=== PATIENT | female | born 2000 | race Two or more races ===

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

== ENCOUNTER 2023-02-09 09:39 | Inpatient (IN) ==
[2023-02-09] MEDS ORDERED: SODIUM CHLORIDE 1,000 ML IV STA ×3 (09:51→11:46)
[2023-02-09 10:02] LABS: VBG PCO2 18 (40-50); VBG PH < 6.80 (7.30-7.40); VBG PO2 45 (36-42)
--- NOTE | 2023-02-09 10:02 | ED.PDOC ---
General ED Provider: Dr. AMAURI LEMONS DO Chief Complaint: Shortness of Air Stated Complaint: Patient is a 22 yo F here for SOB and not taking her insulin and feeling thirsty Patietn arrives afebrile tachycardic 108 and low BP 81/46 Patient arrives with friend by POV Unfortuantely she is known to use fentanyl and emth SHe deneis falls or injuires SHe denies feeling sick SHe reports she just did not want to take her insulin now she is nausea, vomiting and sob Patietn reports she started insulin recently but could not say when Paitetn amnealbe to fluids, labs and imaign Paitetn alert and oriented x4 GCS 15 Time Seen by Provider: 02/09/23 09:49 Nursing and Triage Documentation Reviewed and Agree: Yes Does patient meet sepsis criteria?: No System Inflammatory Response Syndrome: Not Applicable Sepsis Protocol: For patient's 13 years and over: Temp is 96.8 and below OR 101 and greater Pulse >90 BPM Resp >20/minute Acutely Altered Mental Status Are patient's symptoms suggestive of a new infection, such as: -Pneumonia -Skin, Soft Tissue -Endocarditis -UTI -Bone, Joint Infection -Implantable Device -Acute Abdominal Infection -Wound Infection -Meningitis -Blood Stream Catheter Infection -Unknown Review of Systems Review Of Systems Constitutional: Reports Malaise and Weakness; Denies Chills or Fever Eyes: Denies Blindness, Vision change, Drainage or Decreased acuity Ears, Nose, Mouth, Throat: Denies Ear pain, Ear discharge or Nose pain Respiratory: Denies Cough, Orthopnea or Shortness of Breath Cardiac: Denies Chest pain, Edema, Irregular heart rate or Palpitations GI: Reports Nausea and Vomiting; Denies Abdominal pain, Constipated or Diarrhea : Denies Burning, Dysuria, Discharge or Flank pain Musculoskeletal: Denies Back pain, Joint pain or Joint swelling Skin: Denies Bruising or Change in hair/nails Neurological: Reports Anxiety; Denies Depressed Endocrine: Reports Flushing and Increased thirst Hematologic/Lymphatic: Reports No symptoms All Other Systems: Reviewed and Negative [facility] Medical History Anxiety Bipolar disorder Depression Hyperthyroidism Hyperthyroidism Hypokalemia Hypokalemia Palpitations Family History FATHER Chronic mental illness Diabetes Anemia Cardiac disease Hyperlipidemia Cerebrovascular accident Mother Diabetes Other Afib DJD (degenerative joint disease) Social History Smoking and tobacco status: Current some day smoker Alcohol intake: never Substance use type: former substance user and methamphetamine Counseling given: No Household members: friend(s) Highest education level completed: 10th grade Current occupational status: unemployed History of recent travel: No Current gender identity: female Seatbelt use: always Female Reproductive History Menstrual Hx Hysterectomy: No Hx Tubal Ligation: No Physical Exam Physical Exam Appearance: Reports Ill-appearing, Well-nourished and Thin Ill-appearing: Moderate Pain Distress: Mild Eyes: Reports KENNETH, EOMI and Conjunctiva clear ENT: Reports Ears normal, Nose normal, Dry mucosa and Other (poor dentition uvula midline) Neck: Supple (trachea midline) Respiratory: Reports Airway patent, Breath sounds clear and Other (tachypnea, there is not kussmaul breathing) Cardiovascular: Reports Tachycardia GI/: Reports Soft and Other (no peritonitis, there is guarding, no fluid wave) Musculoskeletal: Reports Normal strength and ROM intact; Denies No edema Skin: Reports Warm and Dry Neurological: Reports Sensation intact and Motor intact Psychiatric: Reports Anxious; Denies Depressed Interpretation EKG Interpretation EKG Interpretation By: ED Physician Time of EKG #1: 10:10 Rate: Tachy Rhythm: Sinus Ectopy: None [place]: [place] ST Segment: Normal Interpretation: SInus tachycardia rate 106 no stemi no qt prolongation Radiology Interpretation Radiology Interpretation By: ED Physician Radiology Results: Negative Exam Interpreted: CXR Xray Comments: No pneumothroax no consolidaiotn CVC r IJ in place Procedures Central Line Follow Proper Hand Washing Protocol: Yes Indication: Present Hypotension, Volume resuscitation and No peripheral access Central Line Lumen: Triple Central Line Procedure: Yes Betadine Prep, Sterile drapes applied and Sterile dressing applied Central Line Postion: Internal jugular (R) Anesthesia: Local Complications: None Central Line Post Position: Sutured, Good blood return, Position confirmed w/ CXR and Equal breath sounds Progress: R IJ under US guidance 2 attempt no complications Critical Care Note Critical Care Note Total Critical Care Time (mins): 65 Comments: DKA, shock required reviewing old charts, monitoring and resuscitating cardiovascular system and endocrine system, I directed all care. I reviewed response to treatment, multiple labs and image. Course Course 02/09/23 10:08 02/09/23 10:08 Orders, Labs, Meds: Lab Review 02/09/23 02/09/23 02/09/23 09:59 10:08 11:10 WBC 32.22 H RBC 5.72 H Hgb 16.3 H Hct 50.9 H MCV 89.0 MCH 28.5 MCHC 32.0 RDW Coeff of Yoly 12.5 Plt Count 360 Neutrophils % (Manual) 87.0 H Lymphocytes % (Manual) 11.0 Monocytes % (Manual) 2.0 Platelet Estimate 360 Anisocytosis Not present VBG pH < 6.80 L < 6.80 L VBG pCO2 18 L 20 L VBG pO2 45 H 45 H VBG HCO3 Pending Pending VBG O2 Saturation Pending Pending Sodium 126.2 L Potassium 4.36 Chloride 95.5 L Carbon Dioxide < 5.0 L* Anion Gap 30.13469 BUN 34.8 H Creatinine 1.74 H Estimated GFR (MDRD) 37.00 BUN/Creatinine Ratio 20.00 Glucose 512.7 H* Lactic Acid 1.34 Calcium 8.51 Magnesium 2.66 H Total Bilirubin 0.37 AST 25.3 ALT 20.0 Alkaline Phosphatase 213.7 H Troponin I < 0.012 Total Protein 7.02 Albumin 3.97 Globulin 3.05 Albumin/Globulin Ratio 1.30 TSH < 0.015 L Free T4 3.12 H D-Dimer 1429.22 H Acetone, Qual Large Orders Category Date Time Status ADMIT PATIENT INPATIENT .TO SCU (MONITORED BED) ADMISSION 02/09/23 12:00 Ordered EKG-(ED ONLY) Stat CARDIO 02/09/23 09:44 Ordered VBG DRAW REQUEST Stat CARDIO 02/09/23 11:09 Ordered VBG DRAW REQUEST Stat CARDIO 02/09/23 11:09 Ordered BLOOD GLUCOSE MONITORING (MED/SURG) Q1HR CARE 02/09/23 10:09 Active INTAKE & OUTPUT Q8HR CARE 02/09/23 12:00 Ordered IP: INSERT SALINE LOCK ONCE CARE 02/09/23 12:00 Ordered TELEMETRY MONITORING TELE CARE 02/09/23 12:00 Ordered VITAL SIGNS Q8HR CARE 02/09/23 12:00 Ordered ACETONE, QUALITATIVE Stat LAB 02/09/23 10:08 Completed BLOOD CULTURE Stat LAB 02/09/23 11:55 Received BMP [BASIC METABOLIC PANEL] Stat LAB 02/09/23 11:55 Received CBC W/ AUTO DIFF Stat LAB 02/09/23 10:08 Completed COMPREHENSIVE METABOLIC PANEL Stat LAB 02/09/23 10:08 Completed D-DIMER Stat LAB 02/09/23 10:08 Completed FREE T4 (FREE THYROXINE) Stat LAB 02/09/23 10:08 Completed LACTIC ACID Stat LAB 02/09/23 10:08 Completed MAGNESIUM Stat LAB 02/09/23 10:08 Completed MANUAL DIFFERENTIAL Stat LAB 02/09/23 10:08 Completed TEST URINE [URINE ] Stat LAB 02/09/23 09:44 Uncollected THYROID STIMULATING HORMONE Stat LAB 02/09/23 10:08 Completed TROPONIN I Stat LAB 02/09/23 10:08 Completed UA [URINALYSIS C & S IF INDICATED] Stat LAB 02/09/23 09:52 Uncollected URINE DRUG SCREEN (RAPID FOR ED) [DRUG SCREEN, URINE, LAB 02/09/23 09:52 Uncollected RAPID] Stat VBG [VENOUS BLOOD GAS] Stat LAB 02/09/23 09:59 Results VBG [VENOUS BLOOD GAS] Stat LAB 02/09/23 11:10 Results Insulin Regular in 0.9 % NaCl [Myxredlin 100 Unit/100 Meds 02/09/23 10:30 Active ml Bag] 100 unit in 100 ml IV TITRATION Insulin Regular, Human [Humulin R] Meds 02/09/23 10:08 Discontinued 10 unit IVP ONCE STA Piperacillin Sodium/Tazobactam [Zosyn 3.375 gm] 3.375 Meds 02/09/23 11:22 Active gm 0.9 % Sodium Chloride [Sodium Chloride 100Ml] 100 ml IV ONCE Ringers Lactated Solution [Lactated Ringers] 1,000 ml Meds 02/09/23 11:00 Active Sodium Bicarb 8.4% Vial [Sodium Bicarbonate 8.4%] 100 meq IV 250 mls/hr Sodium Chloride 0.9% [Sodium Chloride] 1,000 ml Meds 02/09/23 09:51 Discontinued IV BOLUS Sodium Chloride 0.9% [Sodium Chloride] 1,000 ml Meds 02/09/23 09:57 Discontinued IV BOLUS Sodium Chloride 0.9% [Sodium Chloride] 1,000 ml Meds 02/09/23 11:46 Active IV BOLUS Vancomycin/Water For Inj (Peg) [Vancomycin 1 Gram/200 Meds 02/09/23 11:22 Active ml Premix] 1 gm in 200 ml IV ONCE RESUSCITATION STATUS Routine OTHERS 02/09/23 12:00 Ordered CXR [CHEST, 1V AP ONLY] Stat RADS 02/09/23 11:00 Completed Medications Generic Name Dose Route Start Last Admin Trade Name Brown PRN Reason Stop Dose Admin INSULIN REGULAR IN 0.9 % NACL 100 unit in 100 mls @ 4.36 mls/hr 02/09/23 10:30 02/09/23 10:20 Myxredlin 100 Unit/100 Ml Bag IV 0.1 unit/kg/hr TITRATION MARLY 4.4 mls/hr Administration Protocol 0.1 UNIT/KG/HR Sodium Bicarbonate 100 meq/ 1,100 mls @ 250 mls/hr 02/09/23 11:00 02/09/23 11:21 Lactated Ringer's IV 250 mls/hr .Q4H24M MARLY Administration VANCOMYCIN/WATER FOR INJ (PEG) 1 gm in 200 mls @ 200 mls/hr 02/09/23 11:22 Vancomycin 1 Gram/200 Ml Premix IV 02/09/23 12:21 ONCE ONE Piperacillin Sod/Tazobactam 100 mls @ 100 mls/hr 02/09/23 11:22 Sod 3.375 gm/ Sodium Chloride IV 02/09/23 12:21 ONCE ONE Sodium Chloride 1,000 mls @ 1,000 mls/hr 02/09/23 11:46 Sodium Chloride IV 02/09/23 12:45 BOLUS STA Discontinued Medications Generic Name Dose Route Start Last Admin Trade Name Brown PRN Reason Stop Dose Admin Sodium Chloride 1,000 mls @ 1,000 mls/hr 02/09/23 09:51 02/09/23 10:11 Sodium Chloride IV 02/09/23 10:50 1,000 mls/hr BOLUS STA Administration Sodium Chloride 1,000 mls @ 1,000 mls/hr 02/09/23 09:57 02/09/23 11:21 Sodium Chloride IV 02/09/23 10:56 1,000 mls/hr BOLUS STA Administration Insulin Human Regular 10 unit 02/09/23 10:08 02/09/23 10:17 Insulin Regular, Human 100 Unit/Ml (3ml) Vial IVP 02/09/23 10:09 10 unit ONCE STA Administration Vital Signs: Temp Pulse Resp BP Pulse Ox 02/09/23 10:20 107 H 25 H 81/46 L 02/09/23 09:44 97.1 F L 107 H 21 H 81/46 L 100 will resuscitate fluids and when K+ level is known give insulin suspect HHX/DKA and will likely admit for insulin drip I spoke with Dr. Roseanna Willard and Leigh Pharmacist plan will be fluids, insulin bolus and drip and na bicarb LR drip at 25 cc's an hour for 1 L and 2 amps bicarb MDM: Patient is a 22 yo F here for SOB, tachycardia and low blood pressure Patient arrives with unstable vitals as listed above She is alert and oriented x4 GCS 15 Patient reports she decided not to take her insulin for many days She unfortunately uses methamphetamine tobacco and alcohol Exam concerning for DKA with tachycardia and tachypnea, she is not obtunded Patient amenable to labs or imaging and treatment Emergent R IJ CVC for difficult peripheral access Patient improved with therapies Consults to Hospitalist Team Dr. Willard and JOELLE Jacobs WDX: DKA, JACE, hypotension, leukocytosis, polysubstance abuse, SOB acute condition high complexity DDX: I considered overdose, withdrawal pneumothorax but these are less likely Patient declined test initially D dimer elevated I initially ordered Chest pain work up and d dimer for tachycardia, unfortunately I deleted lab once I decided wdx was DKA, but lab ran the test anyway. Low risk wells PE score I discussed this with Hospitalist team will hold CT imaging now in setting of DKA/JACE SDOH: Patient is uninsured without PCP or family support She will improve with therapies We plan for admission, fluids resuscitation, insulin and bicarb drip Patient amenable to plan Discharge Plan Discharge Patient Disposition: ADMITTED INPATIENT Discharge Problem: JACE (acute kidney injury), Alkaline phosphatase elevation, DKA (diabetic ketoacidosis), Leukocytosis, Tobacco use, Polysubstance abuse Did you review [place] MEDICAL PARASITOLOGIST for ALL controlled substances?: Not Applicable ED Provider: AMAURI LEMONS Condition: Critical Physician Progress Note: []
[2023-02-09] MEDS ORDERED: HUMULIN R IVP STA (10:08)
[2023-02-09 10:15] LABS: HEMATOCRIT 50.9 % (37.0-47.0); HEMOGLOBIN 16.3 g/dl (12.0-16.0); MEAN CORPUSCULAR HEMOGLOBIN 28.5 pg (27.0-31.0); PLATELET COUNT 360 10^3/uL (140-440); RDW COEFFICIENT OF VARIATION 12.5 % (11.6-14.8); RED BLOOD COUNT 5.72 10^6/ul (4.20-5.40); WHITE BLOOD COUNT 32.22 K/ul (4.6-10.2)
[2023-02-09] MEDS ORDERED: MYXREDLIN 100 UNIT/100 ML BAG 100 UNIT/100 ML PLAST..BAG IV SCH (10:30)
[2023-02-09 11:01] LABS: ANISOCYTOSIS NOT PRESENT (NOT PRESENT)
[2023-02-09 11:02] LABS: PLATELET ESTIMATE 360
[2023-02-09 11:13] LABS: VBG PCO2 20 (40-50); VBG PH < 6.80 (7.30-7.40); VBG PO2 45 (36-42)
[2023-02-09] MEDS: SODIUM BICARBONATE 8.4% 100 MEQ in LACTATED RINGERS 1,000 ML IV SCH ×2 (11:21→16:20)
[2023-02-09] MEDS ORDERED: ZOSYN 3.375 GM 3.375 GM in SODIUM CHLORIDE 100ML 100 ML IV ONE (11:22)
[2023-02-09] MEDS ORDERED: VANCOMYCIN 1 GRAM/200 ML PREMIX 1 GM/200 ML BAG IV ONE (11:22)
--- NOTE | 2023-02-09 11:22 | DI ---
EXAM: SINGLE VIEW CHEST XRAY. Date: 02/09/2023 Comparison: 01/19/2022 History: Central line placement. Findings: A central line has been placed via right jugular approach and the tip is at the atriocaval junction. No acute osseous abnormalities are seen. The lungs are clear and there is no pleural separ ation.. The cardiac silhouette is within normal limits. The pulmonary vasculature is within normal l imits. Impresson: No acute intrathoracic findings.Placement of a right jugular line whose tip is at the atri ocaval junction. No pleural separation.
[2023-02-09 11:26] LABS: ALBUMIN 3.97 g/dL (3.5-5.0); ALKALINE PHOSPHATASE 213.7 U/L (38-126); ASPARTATE AMINO TRANSFERASE 25.3 U/L (14-36); BILIRUBIN,TOTAL 0.37 mg/dL (0.2-1.3); BLOOD UREA NITROGEN 34.8 mg/dL (7-17); CALCIUM 8.51 mg/dL (8.4-10.2); CHLORIDE 95.5 mmol/L (98-107); CREATININE 1.74 mg/dL (0.60-1.30); MAGNESIUM 2.66 mg/dL (1.6-2.3); POTASSIUM 4.36 mmol/L (3.5-5.1); SODIUM 126.2 mmol/L (134.5-145); TOTAL PROTEIN 7.02 g/dL (6.3-8.2)
[2023-02-09 11:41] LABS: CARBON DIOXIDE < 5.0 mmol/L (22-30.0)
[2023-02-09 11:42] LABS: GLUCOSE 512.7 mg/dL (74-106); THYROID STIMULATING HORMONE < 0.015 uIU/L (0.465-4.68); TROPONIN I < 0.012 ng/ml (0.0000-0.120)
--- NOTE | 2023-02-09 12:10 | PCM ---
Date of Service Date Seen by Provider: 02/09/23 Time Seen by Provider: 11:50 Admit Day/Time Admission Date: 02/09/23 Admission Time: 12:00 Reason for Admission Chief Complaint: DKA Hospital Provider Hospital Provider[facility] History of Present Illness History of Present Illness: Patient is a 22-year-old female with past medical history of DM type I who presents with shortness of breath, nausea and vomiting. She was found to be in severe DKA with ph <6.8, bicarb <5, and glucose >500. She was started on fluids, given insulin bolus and started on insulin drip. Required a central line. Her mentation improved after 2 fluid boluses. Still somewhat confused. No active vomiting. She states she's been staying somewhere with air conditioning. She states last insulin use was yesterday. She's unsure of last drug use. She denies hx of dka, however, it is listed in pmhx. About a year ago she was in [place] for glucose >1500 per records. Unreliable historian with this acute condition, pmhx gathered from previous records. Case Discussed With Case Discussed With: Patient's case was discussed with the ER Physicians, Dr. Yu. [facility] Medical History Anxiety F41.9 - Anxiety disorder, unspecified (ICD-10) Bipolar disorder F31.9 - Bipolar disorder, unspecified (ICD-10) Depression F32.9 - Major depressive disorder, single episode, unspecified (ICD-10) Hyperthyroidism E05.90 - Thyrotoxicosis, unspecified without thyrotoxic crisis or storm (ICD-10) Hypokalemia E87.6 - Hypokalemia (ICD-10) Palpitations R00.2 - Palpitations (ICD-10) Family History FATHER Chronic mental illness Diabetes Anemia Cardiac disease Hyperlipidemia Cerebrovascular accident Mother Diabetes Other Afib DJD (degenerative joint disease) Social History Smoking and tobacco status: Current some day smoker Alcohol intake: never Substance use type: former substance user and methamphetamine Counseling given: No Household members: friend(s) Highest education level completed: 10th grade Current occupational status: unemployed History of recent travel: No Current gender identity: female Seatbelt use: always Allergies Allergies Allergy/AdvReac Type Severity Reaction Status Date / Time latex AdvReac Rash Verified 02/09/23 12:09 Current Medications Home Medications Levemir FlexTouch U100 Insulin 100 unit/mL (3 mL) subcutaneous pen (insulin detemir U-100) 10 unit (0.1 mL) subcut QHS #15 mL 11/05/21 [Rx Confirmed 11/05/21 Last Taken Unknown] ibuprofen 800 mg tablet 800 mg PO Q8H PRN 11/05/21 [History Confirmed 11/05/21 Last Taken Unknown] insulin lispro 100 unit/mL subcutaneous solution (Humalog U-100 Insulin) 1 sliding scale dose subcut USEASDIRECTD #10 mL 11/05/21 [Rx Confirmed 11/05/21 Last Taken Unknown] insulin syringes (disposable) 1 mL #500 ea 11/05/21 [Rx Confirmed 11/05/21 Last Taken Unknown] pen needle, diabetic 31 gauge x 3/16" (Advocate Pen Needle) #100 ea 11/05/21 [Rx Confirmed 11/05/21 Last Taken Unknown] blood sugar diagnostic (OneTouch Ultra Test strips) #100 ea 11/08/21 [Rx Last Taken Unknown] potassium chloride 20 mEq tablet,extended release 20 meq PO DAILY #20 tabs 01/19/22 [Rx Last Taken Unknown] ondansetron 4 mg disintegrating tablet 4 mg PO Q8H PRN nausea and vomiting #10 tabs 01/31/22 [Rx Last Taken Unknown] Home Enoxaparin Sodium (Enoxaparin Sodium 40 Mg/0.4 Ml Syr) 40 mg SUBCUT DAILY [facility] Sodium Bicarbonate 100 meq/ (Lactated Ringer's) 1,100 mls @ 250 mls/hr IV .Q4H24M [facility] Last Admin: 02/09/23 11:21 Dose: 250 mls/hr Ondansetron HCl (Ondansetron Hcl/Pf 4 Mg/2 Ml Sdv) 4 mg IVP Q6H PRN PRN Reason: Nausea / Vomiting Discontinued Medications Sodium Chloride (Sodium Chloride) 1,000 mls @ 1,000 mls/hr IV BOLUS STA Stop: 02/09/23 10:50 Last Admin: 02/09/23 10:11 Dose: 1,000 mls/hr Sodium Chloride (Sodium Chloride) 1,000 mls @ 1,000 mls/hr IV BOLUS STA Stop: 02/09/23 10:56 Last Admin: 02/09/23 11:21 Dose: 1,000 mls/hr INSULIN REGULAR IN 0.9 % NACL (Myxredlin 100 Unit/100 Ml Bag) 100 unit in 100 mls @ 4.36 mls/hr IV TITRATION MARLY; Protocol Last Admin: 02/09/23 10:20 Dose: 0.1 unit/kg/hr, 4.4 mls/hr VANCOMYCIN/WATER FOR INJ (PEG) (Vancomycin 1 Gram/200 Ml Premix) 1 gm in 200 mls @ 200 mls/hr IV ONCE ONE Stop: 02/09/23 12:21 Last Admin: 02/09/23 13:32 Dose: 200 mls/hr Piperacillin Sod/Tazobactam (Sod 3.375 gm/ Sodium Chloride) 100 mls @ 100 mls/hr IV ONCE ONE Stop: 02/09/23 12:21 Sodium Chloride (Sodium Chloride) 1,000 mls @ 1,000 mls/hr IV BOLUS STA Stop: 02/09/23 12:45 Last Admin: 02/09/23 13:14 Dose: 1,000 mls/hr Potassium Chloride (Potassium Chloride 20 Meq/100 Ml Premix) 20 meq in 100 mls @ 50 mls/hr IV ONCE ONE Stop: 02/09/23 14:23 Last Admin: 02/09/23 12:47 Dose: 50 mls/hr Potassium Chloride (Potassium Chloride 10 Meq/100 Ml Premix) 10 meq in 100 mls @ 100 mls/hr IV ONCE ONE Stop: 02/09/23 13:43 Insulin Human Regular (Insulin Regular, Human 100 Unit/Ml (3ml) Vial) 10 unit IVP ONCE STA Stop: 02/09/23 10:09 Last Admin: 02/09/23 10:17 Dose: 10 unit Review of Systems Constitutional: Reports Fatigue and Weakness Head: Reports Normocephalic and Atraumatic Throat: Denies Sore Throat Cardiovascular: Denies Chest pain or Chest Pressure Respiratory: Reports Cough and Shortness of air Gastrointestinal: Reports Nausea and Abdominal pain Genitourinary: Reports Other (states she "can't pee") Neurological: Reports Weakness Physical examination Most Recent Vital Signs: Most Recent Vital Signs Temperature 97.1 F L 02/09/23 09:44 Temperature Source Infrared 02/09/23 09:44 Pulse Rate 107 H 02/09/23 10:20 Respiratory Rate 25 H 02/09/23 10:20 Blood Pressure 81/46 L 02/09/23 10:20 Blood Pressure Mean 57 02/09/23 10:20 O2 Sat by Pulse Oximetry 100 02/09/23 09:44 Height 5 ft 02/09/23 09:44 Weight 96 lb 1.945 oz 02/09/23 09:44 Telemetry Heart Rate 88 10/30/21 09:57 Appearance: Positive Ill-Appearing and Thin Skin: Negative Jaundice HEENT: Positive Normocephalic and Atraumatic; Negative Oral Mucous Moist Neck: Positive Supple, Midline Trachea and Other (central line, right ) Chest/Lungs: Positive Symmetrical With Equal Breath Sounds, Clear to Auscultation Bilaterally and Other (increased respirations, +kussmaul breathing ) Heart: Positive Tachycardia GI/: Positive Soft, Nontender, Bowel Sounds Normal and No Distention Extremities: Negative Edema Neurological: Positive Cranial Nerves Intact, Alert and Oriented Psychiatric: Positive Other (unable to fully assess due to acute illness ) Labs This Visit Labs This Visit: Labs This Visit 02/09/23 02/09/23 02/09/23 09:59 10:08 11:10 WBC 32.22 H RBC 5.72 H Hgb 16.3 H Hct 50.9 H MCV 89.0 MCH 28.5 MCHC 32.0 RDW Coeff of Yoly 12.5 Plt Count 360 Neutrophils % (Manual) 87.0 H Lymphocytes % (Manual) 11.0 Monocytes % (Manual) 2.0 Platelet Estimate 360 Anisocytosis Not present VBG pH < 6.80 L < 6.80 L VBG pCO2 18 L 20 L VBG pO2 45 H 45 H Sodium 126.2 L Potassium 4.36 Chloride 95.5 L Carbon Dioxide < 5.0 L* Anion Gap 30.42895 BUN 34.8 H Creatinine 1.74 H Estimated GFR (MDRD) 37.00 BUN/Creatinine Ratio 20.00 Glucose 512.7 H* Lactic Acid 1.34 Calcium 8.51 Magnesium 2.66 H Total Bilirubin 0.37 AST 25.3 ALT 20.0 Alkaline Phosphatase 213.7 H Troponin I < 0.012 Total Protein 7.02 Albumin 3.97 Globulin 3.05 Albumin/Globulin Ratio 1.30 TSH < 0.015 L Free T4 3.12 H D-Dimer 1429.22 H Acetone, Qual Large Imaging Imaging: EXAM: SINGLE VIEW CHEST XRAY. Date: 02/09/2023 Comparison: 01/19/2022 History: Central line placement. Findings: A central line has been placed via right jugular approach and the tip is at the atriocaval junction. No acute osseous abnormalities are seen. The lungs are clear and there is no pleural separation.. The cardiac silhouette is within normal limits. The pulmonary vasculature is within normal limits. Impression: No acute intrathoracic findings.Placement of a right jugular line whose tip is at the atriocaval junction. No pleural separation. Review Statement Review Statement: I have independently reviewed and interpreted the labs/EKGs/imaging that were ordered by the ER provider. I have reviewed all outside records that are available currently in our EMR including imaging/notes/labs from previous visi ts. Plan Plan: 1. DKA, severe - Potassium has dropped to 3.3 Will hold insulin drip until potassium improves. K rider ordered. Once potassium improves, will continue insulin drip with NS + 20 K+ at 250 ml/hr in one line, and bolus the other line with LR as patient is very dehydrated. Continue bicarb drip until ph at least a adriana 6.9. Will repeat bmp every 4 hours and VBGs every 2-4 hours. AG 30, corrected Na 133. 2. High AG metabolic acidosis - Plan as above, continue bicarb drip for now. 3. JACE, stage I in setting of DKA - Continue fluids. 4. Hypermagnesemia in setting of dka/dehydration - Continue fluids 5. Hyperthyroidism - TSH chronically low. Will need to be addressed following this acute illness. 6. Leukocytosis - Likely reactive. UA still pending. Pt received vanc and zosyn in ER. Will give rocephin if needed based on UA. CXR negative. 7. Substance abuse - Will address hep c/hiv testing once patient improved. UDS pending. 8. DMT1, uncontrolled - A1c ordered. Has poor social support. Consider statin and lázaro-I upon discharge. 9. Hypotension in setting of dehydration - Improving. Continue fluids. 10. Elevated d dimer - Likely inflammatory due to acute illness. Will monitor HR and O2. 11. Acute pancreatitis - Lipase >7000. US abd ordered for tomorrow. LFTs normal except for alk phos. Will trend lipase. Cont fluids. DVT Prophylaxis: Lovenox Time Spent: Greater than 80 minutes spent with patient, 50% of the time spent with this patient was devoted to counseling and coordination of care. [facility] Plannin minutes spent discussing advance care planning. FULL CODE Admit to: INPATIENT/SCU Discussed Plan of Care with Dr. Brittny Willard. Medications Medication Orders: Medications Ordered Category Date Time Status Insulin Regular in 0.9 % NaCl [Myxredlin 100 Unit/100 Meds 02/09/23 10:30 Active ml Bag] 100 unit in 100 ml IV TITRATION Piperacillin Sodium/Tazobactam [Zosyn 3.375 gm] 3.375 Meds 02/09/23 11:22 Active gm 0.9 % Sodium Chloride [Sodium Chloride 100Ml] 100 ml IV ONCE Ringers Lactated Solution [Lactated Ringers] 1,000 ml Meds 02/09/23 11:00 Active Sodium Bicarb 8.4% Vial [Sodium Bicarbonate 8.4%] 100 meq IV 250 mls/hr Sodium Chloride 0.9% [Sodium Chloride] 1,000 ml Meds 02/09/23 11:46 Active IV BOLUS Vancomycin/Water For Inj (Peg) [Vancomycin 1 Gram/200 Meds 02/09/23 11:22 Active ml Premix] 1 gm in 200 ml IV ONCE
[2023-02-09 12:11] LABS: CALCIUM 8.32 mg/dL (8.4-10.2); CHLORIDE 97.8 mmol/L (98-107); CREATININE 1.64 mg/dL (0.60-1.30); GLUCOSE 414.5 mg/dL (74-106); POTASSIUM 3.34 mmol/L (3.5-5.1); SODIUM 127.5 mmol/L (134.5-145)
[2023-02-09 12:19] LABS: CARBON DIOXIDE < 5.0 mmol/L (22-30.0)
[2023-02-09] MEDS ORDERED: POTASSIUM CHLORIDE 20 MEQ/100 ML PREMIX 20 MEQ/100 ML BAG IV ONE ×2 (12:24→16:01)
[2023-02-09] MEDS ORDERED: POTASSIUM CHLORIDE 10 MEQ/100 ML PREMIX 10 MEQ/100 ML BAG IV ONE (12:44)
[2023-02-09 14:00] LABS: VBG HCO3 5.1 (22-26); VBG PH 6.97 (7.30-7.40)
[2023-02-09 15:21] LABS: BILIRUBIN,URINE Negative (NEGATIVE); CLARITY,URINE Clear (CLEAR); COLOR,URINE Yellow (YELLOW); GLUCOSE, URINE (UA) 1+ (NEGATIVE); KETONES,URINE 3+ (NEGATIVE); LEUKOCYTE ESTERASE ,URINE Negative (NEGATIVE); NITRITE,URINE Negative (NEGATIVE); PH,URINE 5.5 (5-9); PROTEIN,URINE 1+ (NEGATIVE); URINE PREGNANCY TEST NEGATIVE (NEGATIVE); URINE, BLOOD 3+ (NEGATIVE); UROBILINOGEN,URINE 0.2 (0.2)
[2023-02-09 15:26] LABS: URINE WBC, MICROSCOPIC 0-2 (0-2)
[2023-02-09 15:28] LABS: AMPHETAMINE SCREEN,URINE NEGATIVE (NEGATIVE); BARBITURATE SCREEN,URINE NEGATIVE (NEGATIVE); CANNABINOID SCREEN,URINE POSITIVE (NEGATIVE); OPIATE SCREEN,URINE NEGATIVE (NEGATIVE); PHENCYCLIDINE SCREEN,URINE NEGATIVE (NEGATIVE)
[2023-02-09 15:29] LABS: BENZODIAZEPINES SCREEN,URINE NEGATIVE (NEGATIVE); COCAIN SCREEN,URINE NEGATIVE (NEGATIVE); METHADONE URINE SCREEN NEGATIVE (NEGATIVE); METHAMPHETAMINES SCREEN,URINE NEGATIVE (NEGATIVE); OXYCODONE URINE SCREEN NEGATIVE (NEGATIVE); PROPOXYPHENE URINE SCREEN NEGATIVE (NEGATIVE); TRICYCLIC ANTIDEPRESSANTS URIN NEGATIVE (NEGATIVE)
[2023-02-09 15:38] LABS: VBG OXYGEN SATURATION 98.8 (60-80); VBG PH 7.28 (7.30-7.40)
[2023-02-09 15:42] LABS: ALANINE AMINOTRANSFERASE 15.3 U/L (0-35); ALBUMIN 2.52 g/dL (3.5-5.0); ALKALINE PHOSPHATASE 138.1 U/L (38-126); ASPARTATE AMINO TRANSFERASE 25.4 U/L (14-36); BILIRUBIN,TOTAL 0.23 mg/dL (0.2-1.3); BLOOD UREA NITROGEN 33.2 mg/dL (7-17); CALCIUM 7.42 mg/dL (8.4-10.2); CHLORIDE 110.7 mmol/L (98-107); CHOLESTEROL 82.9 mg/dL (0-200); CREATININE 0.86 mg/dL (0.60-1.30); GLUCOSE 57.3 mg/dL (74-106); HDL CHOLESTEROL 28.8 mg/dL (35-80); POTASSIUM 3.15 mmol/L (3.5-5.1); SODIUM 134.9 mmol/L (134.5-145); TOTAL PROTEIN 5.18 g/dL (6.3-8.2); TRIGLYCERIDES 193.2 mg/dL (0-150)
[2023-02-09] MEDS ORDERED: DEXTROSE 50%-WATER ABBOJECT IVP STA (16:04)
[2023-02-09 16:09] VITALS: BMI 19.3
[2023-02-09 16:16] LABS: CREATINE KINASE 516.2 U/L (30-135)
[2023-02-09] MEDS ORDERED: SODIUM CHLORIDE 0.45%-KCL 20 MEQ 1,000 ML IV SCH (16:30)
[2023-02-09 17:13] LABS: CREATINE KINASE MB 13.2 ng/ml (0.0-2.38)
[2023-02-09] MEDS: ZOFRAN 4 MG/2 ML IVP PRN (17:49)
[2023-02-09 19:18] LABS: VBG HCO3 7.8 (22-26); VBG OXYGEN SATURATION 77.8 (60-80); VBG PH 7.27 (7.30-7.40)
[2023-02-09 19:25] LABS: CALCIUM 7.8 mg/dL (8.4-10.2); CHLORIDE 109.7 mmol/L (98-107); CREATININE 0.65 mg/dL (0.60-1.30); GLUCOSE 183.9 mg/dL (74-106); POTASSIUM 4.58 mmol/L (3.5-5.1)
[2023-02-09 19:29] LABS: CARBON DIOXIDE 9.8 mmol/L (22-30.0)
[2023-02-09] MEDS: MYXREDLIN 100 UNIT/100 ML BAG 100 UNIT/100 ML PLAST..BAG IV SCH (20:25)
[2023-02-09] MEDS: D5%-NS-KCL 20 MEQ/L IV SOL 1,000 ML IV SCH (20:30)
[2023-02-09] MEDS ORDERED: TORADOL IVP ONE (21:07)
[2023-02-09] MEDS: REGLAN IVP PRN (21:36)
[2023-02-09 23:53] LABS: VBG HCO3 9.7 (22-26); VBG OXYGEN SATURATION 77.8 (60-80); VBG PH 6.96 (7.30-7.40)
[2023-02-10 00:06] LABS: ALANINE AMINOTRANSFERASE 17.2 U/L (0-35); ALBUMIN 2.31 g/dL (3.5-5.0); ALKALINE PHOSPHATASE 129.7 U/L (38-126); BILIRUBIN,TOTAL 0.22 mg/dL (0.2-1.3); BLOOD UREA NITROGEN 24.7 mg/dL (7-17); CALCIUM 7.45 mg/dL (8.4-10.2); CARBON DIOXIDE 14.2 mmol/L (22-30.0); CREATININE 0.6 mg/dL (0.60-1.30); GLUCOSE 223.7 mg/dL (74-106); POTASSIUM 4.37 mmol/L (3.5-5.1); SODIUM 134.8 mmol/L (134.5-145); TOTAL PROTEIN 4.83 g/dL (6.3-8.2)
[2023-02-10] MEDS: D5%-NS-KCL 20 MEQ/L IV SOL 1,000 ML IV SCH ×6 (00:37→20:20)
[2023-02-10 04:21] LABS: BLOOD UREA NITROGEN 19.9 mg/dL (7-17); CALCIUM 7.38 mg/dL (8.4-10.2); CARBON DIOXIDE 18.3 mmol/L (22-30.0); CHLORIDE 117.1 mmol/L (98-107); CREATININE 0.51 mg/dL (0.60-1.30); GLUCOSE 98.5 mg/dL (74-106); POTASSIUM 3.99 mmol/L (3.5-5.1); SODIUM 138.1 mmol/L (134.5-145)
[2023-02-10 04:22] LABS: VBG HCO3 12.2 (22-26); VBG OXYGEN SATURATION 77.7 (60-80); VBG PH 7.03 (7.30-7.40)
[2023-02-10 07:18] LABS: BASOPHILS % (AUTO) 0.2 % (0.0-3.0); EOSINOPHILS % (AUTO) 0.1 % (0.0-7.0); HEMATOCRIT 35.7 % (37.0-47.0); HEMOGLOBIN 12.9 g/dl (12.0-16.0); IMMATURE GRANULOCYTE % (AUTO) 0.2 % (0.0-5.0); LYMPHOCYTES # (AUTO) 1.2 K/uL (0.60-3.4); LYMPHOCYTES % (AUTO) 13.2 (10.0-50.0); MEAN CORPUSCULAR HEMOGLOBIN 28.6 pg (27.0-31.0); MEAN CORPUSCULAR HGB CONC 36.1 (31.8-35.4); MEAN CORPUSCULAR VOLUME 79.2 fl (81.0-99.0); MONOCYTES % (AUTO) 10.5 (0-10); NEUTROPHILS % (AUTO) 75.8 % (42.2-75.2); PLATELET COUNT 102 10^3/uL (140-440); RDW COEFFICIENT OF VARIATION 12.2 % (11.6-14.8); RED BLOOD COUNT 4.51 10^6/ul (4.20-5.40); WHITE BLOOD COUNT 9.17 K/ul (4.6-10.2)
[2023-02-10 07:21] LABS: VBG HCO3 15.8 (22-26); VBG PH 7.41 (7.30-7.40)
[2023-02-10 07:49] LABS: ALANINE AMINOTRANSFERASE 16.3 U/L (0-35); ALBUMIN 2.15 g/dL (3.5-5.0); ALKALINE PHOSPHATASE 120.6 U/L (38-126); ASPARTATE AMINO TRANSFERASE 27.6 U/L (14-36); BILIRUBIN,TOTAL 0.13 mg/dL (0.2-1.3); BLOOD UREA NITROGEN 16.3 mg/dL (7-17); CALCIUM 7.32 mg/dL (8.4-10.2); CHLORIDE 118.1 mmol/L (98-107); CREATININE 0.48 mg/dL (0.60-1.30); POTASSIUM 3.79 mmol/L (3.5-5.1); TOTAL PROTEIN 4.67 g/dL (6.3-8.2)
[2023-02-10 08:04] LABS: LIPASE 2728.2 U/L (23-300)
[2023-02-10] MEDS: LOVENOX SUBCUT SCH (09:00)
--- NOTE | 2023-02-10 09:53 | US ---
EXAM: ULTRASOUND ABDOMEN COMPLETE. HISTORY: Pancreatitis TECHNIQUE: Ultrasound and limited doppler evaluation of the enitre abdomen was performed. COMPARISON: CT abdomen pelvis 01/31/2022 FINDINGS: The liver is normal in echogenicity and measures 14.6 cm in length. The portal vein is pat ent. The gallbladder demonstrates the layering stones without pericholecystic fluid. Gallbladder wa ll measures 0.3 cm. Common bile duct measures 0.4 cm in diameter. The pancreas is unremarkable. Th e aorta and IVC are unremarkable. The spleen is normal in echogenicity and measures 9.3 cm in length . The right kidney measures 10.7 x 4.6 x 4.8 cm with cortical thickness of 1.6 cm. There is normal ech ogenicity and Doppler flow. There is no visualized stone, cyst or hydronephrosis. The left kidney measures 10.5 x 5.2 x 4.7 cm with no visualized mass and cortical thickness of 1.7 c m. There is normal echogenicity and color Doppler flow. There is no stone, cyst or hydronephrosis. There is minimal free fluid in the abdomen. IMPRESSION: 1. Gallstones. 2. Minimal nonspecific free fluid.
--- NOTE | 2023-02-10 10:24 | PCM.PROG ---
Date/Time Seen Date Seen by Provider: 02/10/23 Time Seen by Provider: 09:15 Provider Provider: KEVEN YAÑEZ, [facility] Chief Complaint Chief Complaint: DKA Subjective Subjective: Complaints of generalized abdominal pain. States from lack of food in days. Requesting to eat. Able to tolerate liquids Objective Appearance: Positive No Apparent Distress, Alert and Oriented x3, Ill-Appearing and Thin Chest/Lungs: Positive Symmetrical With Equal Breath Sounds, Clear to Auscultation Bilaterally and Good Air Movement all 4 Lung Jang Heart: Positive RRR and Pulses Normal GI/: Positive Soft, Bowel Sounds Normal, No Distention, No Organomegaly and Tender (generalized ) Musculoskeletal: Positive Not Examined Neurological: Positive Sensation Intact, Motor intact, Reflexes Intact, Alert, Oriented and Muscle Strength 5/5 in Upper and Lower Extremities Bilaterally Vital Signs Vital Signs: Vital Signs: Last 24 Hours 02/09/23 15:14 02/09/23 18:00 02/09/23 16:30 Temperature 97.5 F L 96.6 F L Temperature Source Oral Temporal Artery Scan Pulse Rate 146 H 146 H Pulse Rate [Apical] Respiratory Rate 24 H 22 H Blood Pressure 117/79 Blood Pressure Mean 91 Blood Pressure Left Arm 118/79 Blood Pressure Location Left Arm Blood Pressure Position Supine Supine O2 Sat by Pulse Oximetry 100 100 Oxygen Delivery Method Room Air Room Air Room Air Height 5 ft Weight 99 lb Telemetry Type Telemetry Monitoring Irregular Telemetry Rate (Approximate) Telemetry Heart Rate Telemetry SPO2 EKG PA Interval EKG QRS Interval EKG QT Interval Telemetry Strip Reading 02/09/23 15:14 02/09/23 19:00 02/09/23 19:00 Temperature Temperature Source Pulse Rate 148 H Pulse Rate [Apical] Respiratory Rate 24 H Blood Pressure 122/80 Blood Pressure Mean 94 Blood Pressure Left Arm Blood Pressure Location Left Arm Blood Pressure Position Supine O2 Sat by Pulse Oximetry 100 Oxygen Delivery Method Room Air Height Weight Telemetry Type Bedside Monitor Bedside Monitor Telemetry Monitoring Started Continues Irregular Telemetry Rate (Approximate) 140-150 BPM Telemetry Heart Rate 146 H 148 H Telemetry SPO2 100 100 EKG PA Interval 0.10 L 0.10 L EKG QRS Interval 0.09 0.09 EKG QT Interval 0.23 L Telemetry Strip Reading Sinus Tachycardia Sinus Tach 02/09/23 19:30 02/09/23 10:30 02/09/23 11:48 Temperature Temperature Source Pulse Rate 144 H 114 H 114 H Pulse Rate [Apical] Respiratory Rate 24 H 22 H 23 H Blood Pressure 130/89 79/49 L 106/69 Blood Pressure Mean 102 Blood Pressure Left Arm Blood Pressure Location Left Arm Blood Pressure Position Supine O2 Sat by Pulse Oximetry 100 100 100 Oxygen Delivery Method Room Air Height Weight Telemetry Type Telemetry Monitoring Irregular Telemetry Rate (Approximate) Telemetry Heart Rate Telemetry SPO2 EKG PA Interval EKG QRS Interval EKG QT Interval Telemetry Strip Reading 02/09/23 13:02 02/09/23 14:47 02/09/23 20:00 Temperature 97.9 F Temperature Source Oral Pulse Rate 120 H 142 H 148 H Pulse Rate [Apical] Respiratory Rate 23 H 24 H 22 H Blood Pressure 122/85 124/87 135/86 Blood Pressure Mean 102 Blood Pressure Left Arm Blood Pressure Location Left Arm Blood Pressure Position Supine O2 Sat by Pulse Oximetry 100 99 Oxygen Delivery Method Room Air Height Weight Telemetry Type Telemetry Monitoring Irregular Telemetry Rate (Approximate) Telemetry Heart Rate Telemetry SPO2 EKG PA Interval EKG QRS Interval EKG QT Interval Telemetry Strip Reading 02/09/23 21:00 02/09/23 22:00 02/09/23 20:00 Temperature 98.7 F Temperature Source Oral Pulse Rate 146 H 148 H Pulse Rate [Apical] 150 H Respiratory Rate 26 H 26 H 26 H Blood Pressure 141/100 H 125/93 H Blood Pressure Mean 113 103 Blood Pressure Left Arm Blood Pressure Location Left Arm Left Arm Blood Pressure Position Supine Supine O2 Sat by Pulse Oximetry 100 100 Oxygen Delivery Method Room Air Room Air Room Air Height Weight Telemetry Type Telemetry Monitoring Irregular Telemetry Rate (Approximate) Telemetry Heart Rate Telemetry SPO2 EKG PA Interval EKG QRS Interval EKG QT Interval Telemetry Strip Reading 02/09/23 23:00 02/10/23 00:00 02/09/23 23:30 Temperature 97.9 F Temperature Source Oral Pulse Rate 154 H 148 H Pulse Rate [Apical] Respiratory Rate 26 H 24 H Blood Pressure 132/87 135/89 137/84 Blood Pressure Mean 102 104 Blood Pressure Left Arm Blood Pressure Location Right Arm Right Arm Blood Pressure Position Supine Supine O2 Sat by Pulse Oximetry 99 99 Oxygen Delivery Method Room Air Room Air Height Weight Telemetry Type Bedside Monitor Telemetry Monitoring Continues Irregular Telemetry Rate (Approximate) Telemetry Heart Rate 168 H Telemetry SPO2 100 EKG PA Interval 0.11 L EKG QRS Interval 0.08 EKG QT Interval 0.23 L Telemetry Strip Reading Sinus Tach 02/10/23 01:00 02/10/23 01:00 02/10/23 02:00 Temperature Temperature Source Pulse Rate 152 H 144 H Pulse Rate [Apical] Respiratory Rate 24 H 24 H Blood Pressure 138/104 H 138/104 H 137/96 H Blood Pressure Mean 115 109 Blood Pressure Left Arm Blood Pressure Location Right Arm Right Arm Blood Pressure Position Supine Supine O2 Sat by Pulse Oximetry 99 99 Oxygen Delivery Method Room Air Room Air Height Weight Telemetry Type Bedside Monitor Telemetry Monitoring Continues Irregular Telemetry Rate (Approximate) Telemetry Heart Rate 145 H Telemetry SPO2 98 EKG PA Interval 0.10 L EKG QRS Interval 0.09 EKG QT Interval 0.25 L Telemetry Strip Reading Sinus Tach 02/10/23 03:00 02/10/23 04:00 02/10/23 05:00 Temperature Temperature Source Pulse Rate 133 H 128 H 132 H Pulse Rate [Apical] Respiratory Rate 22 H 20 22 H Blood Pressure 127/87 133/95 H 141/103 H Blood Pressure Mean 100 107 115 Blood Pressure Left Arm Blood Pressure Location Right Arm Right Arm Right Arm Blood Pressure Position Supine Supine Supine O2 Sat by Pulse Oximetry 99 100 98 Oxygen Delivery Method Room Air Room Air Room Air Height Weight Telemetry Type Telemetry Monitoring Irregular Telemetry Rate (Approximate) Telemetry Heart Rate Telemetry SPO2 EKG PA Interval EKG QRS Interval EKG QT Interval Telemetry Strip Reading 02/09/23 20:30 02/09/23 21:30 02/09/23 22:30 Temperature Temperature Source Pulse Rate 152 H 146 H 152 H Pulse Rate [Apical] Respiratory Rate 22 H 26 H 22 H Blood Pressure 141/91 H 132/81 134/95 H Blood Pressure Mean 107 98 108 Blood Pressure Left Arm Blood Pressure Location Right Arm Right Arm Right Arm Blood Pressure Position Supine Supine Supine O2 Sat by Pulse Oximetry 100 99 100 Oxygen Delivery Method Room Air Room Air Room Air Height Weight Telemetry Type Telemetry Monitoring Irregular Telemetry Rate (Approximate) Telemetry Heart Rate Telemetry SPO2 EKG PA Interval EKG QRS Interval EKG QT Interval Telemetry Strip Reading 02/09/23 23:30 02/10/23 00:30 02/10/23 01:30 Temperature Temperature Source Pulse Rate 164 H 144 H 146 H Pulse Rate [Apical] Respiratory Rate 24 H 20 24 H Blood Pressure 137/84 139/91 H 121/80 Blood Pressure Mean 101 107 93 Blood Pressure Left Arm Blood Pressure Location Right Arm Right Arm Right Arm Blood Pressure Position Supine Supine Supine O2 Sat by Pulse Oximetry 99 98 98 Oxygen Delivery Method Room Air Room Air Room Air Height Weight Telemetry Type Telemetry Monitoring Irregular Telemetry Rate (Approximate) Telemetry Heart Rate Telemetry SPO2 EKG PA Interval EKG QRS Interval EKG QT Interval Telemetry Strip Reading 02/10/23 02:30 02/10/23 03:30 02/10/23 04:30 Temperature Temperature Source Pulse Rate 144 H 134 H 126 H Pulse Rate [Apical] Respiratory Rate 26 H 22 H 20 Blood Pressure 131/91 H 123/87 135/103 H Blood Pressure Mean 104 99 113 Blood Pressure Left Arm Blood Pressure Location Right Arm Right Arm Right Arm Blood Pressure Position Supine Supine Supine O2 Sat by Pulse Oximetry 99 100 98 Oxygen Delivery Method Room Air Room Air Room Air Height Weight Telemetry Type Telemetry Monitoring Irregular Telemetry Rate (Approximate) Telemetry Heart Rate Telemetry SPO2 EKG PA Interval EKG QRS Interval EKG QT Interval Telemetry Strip Reading 02/10/23 05:30 02/10/23 06:00 02/10/23 06:30 Temperature Temperature Source Pulse Rate 132 H 116 H 120 H Pulse Rate [Apical] Respiratory Rate 20 20 20 Blood Pressure 143/106 H 138/108 H 141/101 H Blood Pressure Mean 118 118 114 Blood Pressure Left Arm Blood Pressure Location Right Arm Right Arm Right Arm Blood Pressure Position Supine Supine Supine O2 Sat by Pulse Oximetry 98 100 100 Oxygen Delivery Method Room Air Room Air Room Air Height Weight Telemetry Type Telemetry Monitoring Irregular Telemetry Rate (Approximate) Telemetry Heart Rate Telemetry SPO2 EKG PA Interval EKG QRS Interval EKG QT Interval Telemetry Strip Reading 02/10/23 06:58 02/10/23 09:00 02/10/23 10:00 Temperature 96.3 F L 96.8 F L 96.9 F L Temperature Source Temporal Artery Scan Temporal Artery Scan Temporal Artery Scan Pulse Rate 119 H 132 H 112 H Pulse Rate [Apical] Respiratory Rate 20 20 16 Blood Pressure 128/92 H 141/94 H 130/97 H Blood Pressure Mean 104 109 108 Blood Pressure Left Arm Blood Pressure Location Right Arm Right Arm Right Arm Blood Pressure Position Supine Supine Supine O2 Sat by Pulse Oximetry 100 99 100 Oxygen Delivery Method Room Air Room Air Room Air Height Weight Telemetry Type Telemetry Monitoring Irregular Telemetry Rate (Approximate) Telemetry Heart Rate Telemetry SPO2 EKG PA Interval EKG QRS Interval EKG QT Interval Telemetry Strip Reading 02/10/23 07:00 02/10/23 07:31 02/10/23 07:57 Temperature 97.4 F L Temperature Source Temporal Artery Scan Pulse Rate 126 H Pulse Rate [Apical] 130 H Respiratory Rate 20 20 Blood Pressure 116/97 H Blood Pressure Mean 103 Blood Pressure Left Arm Blood Pressure Location Right Arm Blood Pressure Position Supine O2 Sat by Pulse Oximetry 100 Oxygen Delivery Method Room Air Room Air Height Weight Telemetry Type Bedside Monitor Telemetry Monitoring Continues Irregular Telemetry Rate (Approximate) Telemetry Heart Rate 130 H Telemetry SPO2 EKG PA Interval 0.12 EKG QRS Interval 0.08 EKG QT Interval Telemetry Strip Reading SINUS TACH Lab Results Lab Results: Lab Results: Last 24 Hours 02/10/23 02/10/23 02/10/23 07:16 07:10 04:05 WBC 9.17 D RBC 4.51 Hgb 12.9 D Hct 35.7 L D MCV 79.2 L D MCH 28.6 MCHC 36.1 H RDW Coeff of Yoly 12.2 Plt Count 102 L D Immature Gran % (Auto) 0.2 Neut % (Auto) 75.8 H Lymph % (Auto) 13.2 Cass % (Auto) 10.5 H Eos % (Auto) 0.1 Baso % (Auto) 0.2 Neut # (Auto) 7.0 H Lymph # (Auto) 1.2 Cass # (Auto) 1.0 Eos # (Auto) 0.0 Baso # (Auto) 0.0 Immature Gran # (Auto) 0.0 Neutrophils % (Manual) Lymphocytes % (Manual) Monocytes % (Manual) Platelet Estimate Anisocytosis VBG pH 7.41 H VBG pCO2 25 L VBG pO2 75 H VBG HCO3 15.8 L VBG O2 Saturation 95.0 H Sodium 140.0 138.1 Potassium 3.79 3.99 Chloride 118.1 H 117.1 H Carbon Dioxide 19.0 L 18.3 L Anion Gap 6.69 6.69 BUN 16.3 19.9 H Creatinine 0.48 L 0.51 L Estimated GFR (MDRD) 162.00 151.00 BUN/Creatinine Ratio 33.95 39.01 Glucose 75.0 98.5 D Hemoglobin A1c 13.60 H D Lactic Acid Calcium 7.32 L 7.38 L Magnesium Total Bilirubin 0.13 L AST 27.6 ALT 16.3 Alkaline Phosphatase 120.6 Total Creatine Kinase CK-MB (CK-2) CK-MB (CK-2) % Troponin I Total Protein 4.67 L Albumin 2.15 L Globulin 2.52 Albumin/Globulin Ratio 0.85 Triglycerides Cholesterol LDL Cholesterol, Calc VLDL Cholesterol HDL Cholesterol Cholesterol/HDL Ratio Lipase 2728.2 H TSH Free T4 D-Dimer Urine Color Urine Clarity Urine pH Ur Specific [place] Urine Protein Urine Glucose (UA) Urine Ketones Urine Blood Urine Nitrite Urine Bilirubin Urine Urobilinogen Ur Leukocyte Esterase Urine Microscopic RBC Urine Microscopic WBC Ur Squamous Epith Cells Urine Test Urine Opiates Screen Ur Oxycodone Screen Urine Methadone Screen Ur Propoxyphene Screen Ur Barbiturates Screen U Tricyclic Antidepress Ur Phencyclidine Scrn Ur Amphetamine Screen U Methamphetamines Scrn U Benzodiazepines Scrn Urine Cocaine Screen U Cannabinoids Screen Acetone, Qual 02/10/23 02/09/23 02/09/23 03:20 23:45 22:50 WBC RBC Hgb Hct MCV MCH MCHC RDW Coeff of Yoly Plt Count Immature Gran % (Auto) Neut % (Auto) Lymph % (Auto) Cass % (Auto) Eos % (Auto) Baso % (Auto) Neut # (Auto) Lymph # (Auto) Cass # (Auto) Eos # (Auto) Baso # (Auto) Immature Gran # (Auto) Neutrophils % (Manual) Lymphocytes % (Manual) Monocytes % (Manual) Platelet Estimate Anisocytosis VBG pH 7.03 L 6.96 L VBG pCO2 46 43 VBG pO2 63 H 68 H VBG HCO3 12.2 L 9.7 L VBG O2 Saturation 77.7 77.8 Sodium 134.8 Potassium 4.37 Chloride 114.0 H Carbon Dioxide 14.2 L Anion Gap 10.97 BUN 24.7 H Creatinine 0.60 Estimated GFR (MDRD) 125.00 BUN/Creatinine Ratio 41.16 Glucose 223.7 H Hemoglobin A1c Lactic Acid Calcium 7.45 L Magnesium Total Bilirubin 0.22 AST 27.0 ALT 17.2 Alkaline Phosphatase 129.7 H Total Creatine Kinase CK-MB (CK-2) CK-MB (CK-2) % Troponin I Total Protein 4.83 L Albumin 2.31 L Globulin 2.52 Albumin/Globulin Ratio 0.91 Triglycerides Cholesterol LDL Cholesterol, Calc VLDL Cholesterol HDL Cholesterol Cholesterol/HDL Ratio Lipase TSH Free T4 D-Dimer Urine Color Urine Clarity Urine pH Ur Specific [place] Urine Protein Urine Glucose (UA) Urine Ketones Urine Blood Urine Nitrite Urine Bilirubin Urine Urobilinogen Ur Leukocyte Esterase Urine Microscopic RBC Urine Microscopic WBC Ur Squamous Epith Cells Urine Test Urine Opiates Screen Ur Oxycodone Screen Urine Methadone Screen Ur Propoxyphene Screen Ur Barbiturates Screen U Tricyclic Antidepress Ur Phencyclidine Scrn Ur Amphetamine Screen U Methamphetamines Scrn U Benzodiazepines Scrn Urine Cocaine Screen U Cannabinoids Screen Acetone, Qual 02/09/23 02/09/23 02/09/23 19:10 15:34 15:30 WBC RBC Hgb Hct MCV MCH MCHC RDW Coeff of Yoly Plt Count Immature Gran % (Auto) Neut % (Auto) Lymph % (Auto) Cass % (Auto) Eos % (Auto) Baso % (Auto) Neut # (Auto) Lymph # (Auto) Cass # (Auto) Eos # (Auto) Baso # (Auto) Immature Gran # (Auto) Neutrophils % (Manual) Lymphocytes % (Manual) Monocytes % (Manual) Platelet Estimate Anisocytosis VBG pH 7.28 L VBG pCO2 15 L VBG pO2 137 H VBG HCO3 7.0 L VBG O2 Saturation 98.8 H Sodium 132.0 L Potassium 4.58 Chloride 109.7 H Carbon Dioxide 9.8 L* Anion Gap 17.08 BUN 30.0 H Creatinine 0.65 Estimated GFR (MDRD) 114.00 BUN/Creatinine Ratio 46.15 Glucose 183.9 H D Hemoglobin A1c Lactic Acid Calcium 7.80 L Magnesium Total Bilirubin AST ALT Alkaline Phosphatase Total Creatine Kinase 516.2 H CK-MB (CK-2) 13.200 H* CK-MB (CK-2) % 2.5500 Troponin I Total Protein Albumin Globulin Albumin/Globulin Ratio Triglycerides Cholesterol LDL Cholesterol, Calc VLDL Cholesterol HDL Cholesterol Cholesterol/HDL Ratio Lipase TSH Free T4 D-Dimer Urine Color Urine Clarity Urine pH Ur Specific [place] Urine Protein Urine Glucose (UA) Urine Ketones Urine Blood Urine Nitrite Urine Bilirubin Urine Urobilinogen Ur Leukocyte Esterase Urine Microscopic RBC Urine Microscopic WBC Ur Squamous Epith Cells Urine Test Urine Opiates Screen Ur Oxycodone Screen Urine Methadone Screen Ur Propoxyphene Screen Ur Barbiturates Screen U Tricyclic Antidepress Ur Phencyclidine Scrn Ur Amphetamine Screen U Methamphetamines Scrn U Benzodiazepines Scrn Urine Cocaine Screen U Cannabinoids Screen Acetone, Qual 02/09/23 02/09/23 02/09/23 15:15 14:18 13:57 WBC RBC Hgb Hct MCV MCH MCHC RDW Coeff of Yoly Plt Count Immature Gran % (Auto) Neut % (Auto) Lymph % (Auto) Cass % (Auto) Eos % (Auto) Baso % (Auto) Neut # (Auto) Lymph # (Auto) Cass # (Auto) Eos # (Auto) Baso # (Auto) Immature Gran # (Auto) Neutrophils % (Manual) Lymphocytes % (Manual) Monocytes % (Manual) Platelet Estimate Anisocytosis VBG pH 6.97 L VBG pCO2 22 L VBG pO2 25 L VBG HCO3 5.1 L VBG O2 Saturation 18.0 L Sodium 134.9 Potassium 3.15 L Chloride 110.7 H Carbon Dioxide 8.0 L* Anion Gap 19.35 BUN 33.2 H Creatinine 0.86 D Estimated GFR (MDRD) 83.00 BUN/Creatinine Ratio 38.60 Glucose 57.3 L D Hemoglobin A1c Lactic Acid Calcium 7.42 L Magnesium Total Bilirubin 0.23 AST 25.4 ALT 15.3 Alkaline Phosphatase 138.1 H D Total Creatine Kinase CK-MB (CK-2) CK-MB (CK-2) % Troponin I Total Protein 5.18 L Albumin 2.52 L Globulin 2.66 Albumin/Globulin Ratio 0.94 Triglycerides 193.2 H Cholesterol 82.9 LDL Cholesterol, Calc 15 VLDL Cholesterol 39 H HDL Cholesterol 28.8 L Cholesterol/HDL Ratio 2.9 L Lipase TSH Free T4 D-Dimer Urine Color Yellow Urine Clarity Clear Urine pH 5.5 Ur Specific [place] 1.015 Urine Protein 1+ H Urine Glucose (UA) 1+ H Urine Ketones 3+ H Urine Blood 3+ H Urine Nitrite Negative Urine Bilirubin Negative Urine Urobilinogen 0.2 Ur Leukocyte Esterase Negative Urine Microscopic RBC 5-10 Urine Microscopic WBC 0-2 Ur Squamous Epith Cells 2-5 Urine Test Negative Urine Opiates Screen Ur Oxycodone Screen Urine Methadone Screen Ur Propoxyphene Screen Ur Barbiturates Screen U Tricyclic Antidepress Ur Phencyclidine Scrn Ur Amphetamine Screen U Methamphetamines Scrn U Benzodiazepines Scrn Urine Cocaine Screen U Cannabinoids Screen Acetone, Qual 02/09/23 02/09/23 02/09/23 11:55 11:10 11:09 WBC RBC Hgb Hct MCV MCH MCHC RDW Coeff of Yoly Plt Count Immature Gran % (Auto) Neut % (Auto) Lymph % (Auto) Cass % (Auto) Eos % (Auto) Baso % (Auto) Neut # (Auto) Lymph # (Auto) Cass # (Auto) Eos # (Auto) Baso # (Auto) Immature Gran # (Auto) Neutrophils % (Manual) Lymphocytes % (Manual) Monocytes % (Manual) Platelet Estimate Anisocytosis VBG pH < 6.80 L VBG pCO2 20 L VBG pO2 45 H VBG HCO3 VBG O2 Saturation Sodium 127.5 L Potassium 3.34 L Chloride 97.8 L Carbon Dioxide < 5.0 L* Anion Gap 28.50153 BUN 37.0 H Creatinine 1.64 H Estimated GFR (MDRD) 39.00 BUN/Creatinine Ratio 22.56 Glucose 414.5 H D Hemoglobin A1c Lactic Acid Calcium 8.32 L Magnesium Total Bilirubin AST ALT Alkaline Phosphatase Total Creatine Kinase CK-MB (CK-2) CK-MB (CK-2) % Troponin I Total Protein Albumin Globulin Albumin/Globulin Ratio Triglycerides Cholesterol LDL Cholesterol, Calc VLDL Cholesterol HDL Cholesterol Cholesterol/HDL Ratio Lipase 7796.0 H TSH Free T4 D-Dimer Urine Color Urine Clarity Urine pH Ur Specific [place] Urine Protein Urine Glucose (UA) Urine Ketones Urine Blood Urine Nitrite Urine Bilirubin Urine Urobilinogen Ur Leukocyte Esterase Urine Microscopic RBC Urine Microscopic WBC Ur Squamous Epith Cells Urine Test Urine Opiates Screen Ur Oxycodone Screen Urine Methadone Screen Ur Propoxyphene Screen Ur Barbiturates Screen U Tricyclic Antidepress Ur Phencyclidine Scrn Ur Amphetamine Screen U Methamphetamines Scrn U Benzodiazepines Scrn Urine Cocaine Screen U Cannabinoids Screen Acetone, Qual 02/09/23 02/09/23 02/09/23 10:08 09:52 06:47 WBC 32.22 H RBC 5.72 H Hgb 16.3 H Hct 50.9 H MCV 89.0 MCH 28.5 MCHC 32.0 RDW Coeff of Yoly 12.5 Plt Count 360 Immature Gran % (Auto) Neut % (Auto) Lymph % (Auto) Cass % (Auto) Eos % (Auto) Baso % (Auto) Neut # (Auto) Lymph # (Auto) Cass # (Auto) Eos # (Auto) Baso # (Auto) Immature Gran # (Auto) Neutrophils % (Manual) 87.0 H Lymphocytes % (Manual) 11.0 Monocytes % (Manual) 2.0 Platelet Estimate 360 Anisocytosis Not present VBG pH 7.27 L VBG pCO2 17 L VBG pO2 49 H VBG HCO3 7.8 L VBG O2 Saturation 77.8 Sodium 126.2 L Potassium 4.36 Chloride 95.5 L Carbon Dioxide < 5.0 L* Anion Gap 30.76878 BUN 34.8 H Creatinine 1.74 H Estimated GFR (MDRD) 37.00 BUN/Creatinine Ratio 20.00 Glucose 512.7 H* Hemoglobin A1c Lactic Acid 1.34 Calcium 8.51 Magnesium 2.66 H Total Bilirubin 0.37 AST 25.3 ALT 20.0 Alkaline Phosphatase 213.7 H Total Creatine Kinase CK-MB (CK-2) CK-MB (CK-2) % Troponin I < 0.012 Total Protein 7.02 Albumin 3.97 Globulin 3.05 Albumin/Globulin Ratio 1.30 Triglycerides Cholesterol LDL Cholesterol, Calc VLDL Cholesterol HDL Cholesterol Cholesterol/HDL Ratio Lipase TSH < 0.015 L Free T4 3.12 H D-Dimer 1429.22 H Urine Color Urine Clarity Urine pH Ur Specific [place] Urine Protein Urine Glucose (UA) Urine Ketones Urine Blood Urine Nitrite Urine Bilirubin Urine Urobilinogen Ur Leukocyte Esterase Urine Microscopic RBC Urine Microscopic WBC Ur Squamous Epith Cells Urine Test Urine Opiates Screen Negative Ur Oxycodone Screen Negative Urine Methadone Screen Negative Ur Propoxyphene Screen Negative Ur Barbiturates Screen Negative U Tricyclic Antidepress Negative Ur Phencyclidine Scrn Negative Ur Amphetamine Screen Negative U Methamphetamines Scrn Negative U Benzodiazepines Scrn Negative Urine Cocaine Screen Negative U Cannabinoids Screen Positive H Acetone, Qual Large Additional Comments Additional Comments: I have independently reviewed and interpreted the labs/EKGs/imaging ordered during this hospital stay. I have reviewed outside records that are available in our EMR that pertain to medical stay including imaging/notes/labs from previous visits. Active Medications Active Medications: Medications Generic Name Dose Route Start Last Admin Trade Name Freq PRN Reason Stop Dose Admin Enoxaparin Sodium 40 mg 02/10/23 09:00 Enoxaparin Sodium 40 Mg/0.4 Ml Syr SUBCUT DAILY MARLY INSULIN REGULAR IN 0.9 % NACL 100 unit in 100 mls @ 2 mls/hr 02/09/23 20:00 02/10/23 10:14 Myxredlin 100 Unit/100 Ml Bag IV 4 unit/hr TITRATION MARLY 4 mls/hr Titration Protocol 2 UNIT/HR Potassium Chloride/Dextrose/Sod Cl 1,000 mls @ 250 mls/hr 02/09/23 20:30 02/10/23 08:02 D5%-Ns-Kcl 20 Meq/L Iv [place] IV 250 mls/hr .Q4H MARLY Administration Metoclopramide HCl 5 mg 02/09/23 21:08 02/09/23 21:36 Metoclopramide Hcl 10 Mg/2 Ml IVP 5 mg Q6HR PRN Administration Nausea / Vomiting Ondansetron HCl 4 mg 02/09/23 12:33 02/09/23 17:49 Ondansetron Hcl/Pf 4 Mg/2 Ml Sdv IVP 4 mg Q6H PRN Administration Nausea / Vomiting Plan Plan: 1. DKA, severe - improving, ph within normal limits this am, bicarb borderline, continuing insulin gtt and D5NS+KCL@250mL/hr until next check at 1100, plan to transition to subcut insulin and oral intake if improvement of bicarb 2. High AG metabolic acidosis - resolved 3. JACE, stage I in setting of DKA - resolved, continue fluids due to #1 4. Hypermagnesemia in setting of dka/dehydration - rechecking with next bmpContinue fluids 5. Hyperthyroidism - TSH chronically low. Will need to be addressed following this acute illness. 6. Leukocytosis - resolved, likely reactive due to #1. Pt received vanc and zosyn in ER. CXR & UA negative. 7. Substance abuse - UDS positive for THC. pt denied IV drug use and need for hep/HIV panels, admits to meth use 8. DMT1, uncontrolled - A1c 13. Has poor social support. Consider statin and lázaro-I upon discharge. 9. Hypotension in setting of dehydration - Improving. Continue fluids. 10. Elevated d dimer - Likely inflammatory due to acute illness. Will monitor HR and O2. 11. Acute pancreatitis - improving, Lipase in . US abd showed gallstones but otherwise negative. Will trend lipase. Cont fluids. 12. STI - patient voiced concerns for STI, checking G/C - lab is send out DVT Prophylaxis: Lovenox Review Statement Review Statement: I have personally discussed and reviewed the patient's visit/currently labs/imaging/decision making with Dr. Willard, my supervising attending. Greater that 50 minutes spent with patient, 50% of the time spent with this patient was devoted to counseling and coordination of care.
[2023-02-10 11:26] LABS: VBG HCO3 15.8 (22-26); VBG OXYGEN SATURATION 98.1 (60-80); VBG PH 7.41 (7.30-7.40)
[2023-02-10 11:35] LABS: BLOOD UREA NITROGEN 12.7 mg/dL (7-17); CALCIUM 7.15 mg/dL (8.4-10.2); CARBON DIOXIDE 17.9 mmol/L (22-30.0); CHLORIDE 115.9 mmol/L (98-107); CREATININE 0.4 mg/dL (0.60-1.30); GLUCOSE 186.7 mg/dL (74-106); MAGNESIUM 1.62 mg/dL (1.6-2.3); POTASSIUM 3.34 mmol/L (3.5-5.1); SODIUM 136.2 mmol/L (134.5-145)
[2023-02-10] MEDS ORDERED: LEVEMIR SUBCUT ONE (11:58)
[2023-02-10] MEDS: ZOFRAN 4 MG/2 ML IVP PRN ×2 (12:14→22:29)
[2023-02-10] MEDS ORDERED: PROTONIX IV IVP ONE (14:40)
[2023-02-10 15:13] LABS: BLOOD UREA NITROGEN 9.4 mg/dL (7-17); CALCIUM 6.95 mg/dL (8.4-10.2); CARBON DIOXIDE 19.9 mmol/L (22-30.0); CHLORIDE 115.5 mmol/L (98-107); CREATININE 0.37 mg/dL (0.60-1.30); GLUCOSE 172.2 mg/dL (74-106); POTASSIUM 3.37 mmol/L (3.5-5.1)
[2023-02-10] MEDS: REGLAN IVP PRN (16:19)
[2023-02-10 19:44] LABS: BLOOD UREA NITROGEN 6.9 mg/dL (7-17); CALCIUM 7.29 mg/dL (8.4-10.2); CARBON DIOXIDE 22.9 mmol/L (22-30.0); CHLORIDE 114.7 mmol/L (98-107); CREATININE 0.29 mg/dL (0.60-1.30); GLUCOSE 74.5 mg/dL (74-106); POTASSIUM 3.01 mmol/L (3.5-5.1); SODIUM 138.7 mmol/L (134.5-145)
[2023-02-10] MEDS ORDERED: POTASSIUM CHLORIDE 20 MEQ/100 ML PREMIX 20 MEQ/100 ML BAG IV ONE (21:08)
[2023-02-10] MEDS ORDERED: PEPCID IVP PRN (21:15)
[2023-02-10] MEDS ORDERED: MYLANTA SUSP PO PRN (21:16)
[2023-02-10] MEDS: MYXREDLIN 100 UNIT/100 ML BAG 100 UNIT/100 ML PLAST..BAG IV SCH (22:27)
[2023-02-11] MEDS: D5%-NS-KCL 20 MEQ/L IV SOL 1,000 ML IV SCH ×4 (00:41→22:34)
[2023-02-11 05:28] LABS: BASOPHILS % (AUTO) 0.2 % (0.0-3.0); EOSINOPHILS % (AUTO) 0.2 % (0.0-7.0); HEMATOCRIT 31.6 % (37.0-47.0); HEMOGLOBIN 11.2 g/dl (12.0-16.0); IMMATURE GRANULOCYTE % (AUTO) 0.2 % (0.0-5.0); LYMPHOCYTES # (AUTO) 1.9 K/uL (0.60-3.4); LYMPHOCYTES % (AUTO) 43.5 (10.0-50.0); MEAN CORPUSCULAR HEMOGLOBIN 28.4 pg (27.0-31.0); MEAN CORPUSCULAR HGB CONC 35.4 (31.8-35.4); MEAN CORPUSCULAR VOLUME 80.2 fl (81.0-99.0); MONOCYTES # (AUTO) 0.6 K/uL (0.4-2.0); MONOCYTES % (AUTO) 14.1 (0-10); NEUTROPHILS # (AUTO) 1.9 K/ul (2.0-6.9); NEUTROPHILS % (AUTO) 41.8 % (42.2-75.2); PLATELET COUNT 112 10^3/uL (140-440); RED BLOOD COUNT 3.94 10^6/ul (4.20-5.40); WHITE BLOOD COUNT 4.46 K/ul (4.6-10.2)
[2023-02-11 05:40] LABS: ALANINE AMINOTRANSFERASE 16.3 U/L (0-35); ALBUMIN 1.99 g/dL (3.5-5.0); ALKALINE PHOSPHATASE 93.8 U/L (38-126); ASPARTATE AMINO TRANSFERASE 26.4 U/L (14-36); BILIRUBIN,TOTAL 0.25 mg/dL (0.2-1.3); BLOOD UREA NITROGEN 3.6 mg/dL (7-17); CALCIUM 7.33 mg/dL (8.4-10.2); CARBON DIOXIDE 26.4 mmol/L (22-30.0); CHLORIDE 113.1 mmol/L (98-107); CREATININE 0.31 mg/dL (0.60-1.30); GLUCOSE 70.8 mg/dL (74-106); POTASSIUM 3.26 mmol/L (3.5-5.1); SODIUM 138.6 mmol/L (134.5-145); TOTAL PROTEIN 4.4 g/dL (6.3-8.2)
[2023-02-11] MEDS: LOVENOX SUBCUT SCH ×2 (08:58→09:23)
[2023-02-11] MEDS: PROTONIX IV IVP SCH (09:04)
[2023-02-11] MEDS ORDERED: LEVEMIR SUBCUT ONE (09:13)
--- NOTE | 2023-02-11 09:21 | PCM.PROG ---
Date/Time Seen Date Seen by Provider: 02/11/23 Time Seen by Provider: 08:45 Provider Provider: KEVEN YAÑEZ, [facility] Chief Complaint Chief Complaint: DKA Subjective Subjective: Feeling better today. Has not been able to eat more than a few bites of food due to abdominal "burning". Objective Appearance: Positive No Apparent Distress, Alert and Oriented x3, Ill-Appearing and Thin Chest/Lungs: Positive Symmetrical With Equal Breath Sounds, Clear to Auscultation Bilaterally and Good Air Movement all 4 Lung Jang Heart: Positive RRR and Pulses Normal GI/: Positive Soft, Nontender, Bowel Sounds Normal, No Distention and No Organomegaly Musculoskeletal: Positive Normal Gait and Station Neurological: Positive Sensation Intact, Motor intact, Alert, Oriented and Muscle Strength 5/5 in Upper and Lower Extremities Bilaterally Vital Signs Vital Signs: Vital Signs: Last 24 Hours 02/10/23 10:00 02/10/23 12:00 02/10/23 13:00 Temperature 96.9 F L 96.9 F L Temperature Source Temporal Artery Scan Temporal Artery Scan Pulse Rate 112 H 126 H Pulse Rate [Apical] Respiratory Rate 16 21 H Blood Pressure 130/97 H 128/93 H Blood Pressure Mean 108 104 Blood Pressure Location Right Arm Right Arm Blood Pressure Position Supine Supine O2 Sat by Pulse Oximetry 100 99 Oxygen Delivery Method Room Air Room Air Telemetry Type Bedside Monitor Telemetry Monitoring Continues Telemetry Heart Rate 124 H Telemetry SPO2 100 EKG CO Interval 0.12 EKG QRS Interval 0.08 EKG QT Interval Telemetry Strip Reading SINUS TACH 02/10/23 14:00 02/10/23 16:00 02/10/23 18:00 Temperature 96.8 F L Temperature Source Temporal Artery Scan Pulse Rate 119 H 110 H 113 H Pulse Rate [Apical] Respiratory Rate 19 23 H 20 Blood Pressure 116/85 139/102 H 129/95 H Blood Pressure Mean 95 114 106 Blood Pressure Location Left Arm Left Arm Left Arm Blood Pressure Position Supine Supine Sitting O2 Sat by Pulse Oximetry 100 100 99 Oxygen Delivery Method Room Air Room Air Room Air Telemetry Type Telemetry Monitoring Telemetry Heart Rate Telemetry SPO2 EKG CO Interval EKG QRS Interval EKG QT Interval Telemetry Strip Reading 02/10/23 19:00 02/10/23 20:00 02/10/23 20:00 Temperature Temperature Source Pulse Rate 116 H Pulse Rate [Apical] 110 H Respiratory Rate 20 18 Blood Pressure 117/96 H Blood Pressure Mean 103 Blood Pressure Location Left Arm Blood Pressure Position Sitting O2 Sat by Pulse Oximetry 99 Oxygen Delivery Method Room Air Room Air Telemetry Type Bedside Monitor Telemetry Monitoring Continues Telemetry Heart Rate 102 H Telemetry SPO2 100 EKG CO Interval 0.08 L EKG QRS Interval 0.10 EKG QT Interval 0.37 Telemetry Strip Reading Sinus Tach no ectopy noted 02/10/23 22:00 02/11/23 00:00 02/11/23 01:00 Temperature 98.4 F 98.4 F Temperature Source Oral Oral Pulse Rate 122 H 120 H Pulse Rate [Apical] Respiratory Rate 20 20 Blood Pressure 132/96 H 126/92 H Blood Pressure Mean 108 103 Blood Pressure Location Left Arm Left Arm Blood Pressure Position Supine Supine O2 Sat by Pulse Oximetry 100 97 Oxygen Delivery Method Room Air Room Air Telemetry Type Bedside Monitor Telemetry Monitoring Continues Telemetry Heart Rate 104 H Telemetry SPO2 98 EKG CO Interval 0.12 EKG QRS Interval 0.08 EKG QT Interval 0.28 L Telemetry Strip Reading Sinus Tach no ectopy noted 02/11/23 02:00 02/11/23 04:00 02/11/23 06:00 Temperature Temperature Source Pulse Rate 102 H 102 H 120 H Pulse Rate [Apical] Respiratory Rate 18 18 20 Blood Pressure 127/90 123/92 H Blood Pressure Mean 102 102 Blood Pressure Location Left Arm Left Arm Blood Pressure Position Supine Supine Supine O2 Sat by Pulse Oximetry 97 98 99 Oxygen Delivery Method Room Air Room Air Room Air Telemetry Type Telemetry Monitoring Telemetry Heart Rate Telemetry SPO2 EKG CO Interval EKG QRS Interval EKG QT Interval Telemetry Strip Reading 02/11/23 07:00 02/11/23 08:00 02/11/23 07:00 Temperature 98.0 F 98 F Temperature Source Temporal Artery Scan Pulse Rate 108 H 98 Pulse Rate [Apical] Respiratory Rate 18 16 Blood Pressure 133/74 132/97 H Blood Pressure Mean 93 108 Blood Pressure Location Left Arm Left Arm Blood Pressure Position Supine O2 Sat by Pulse Oximetry 99 96 Oxygen Delivery Method Room Air Room Air Telemetry Type Bedside Monitor Telemetry Monitoring Continues Telemetry Heart Rate 114 H Telemetry SPO2 100 EKG CO Interval 0.12 EKG QRS Interval 0.08 EKG QT Interval Telemetry Strip Reading ST Lab Results Lab Results: Lab Results: Last 24 Hours 02/11/23 02/10/23 02/10/23 05:10 19:20 14:59 WBC 4.46 L RBC 3.94 L Hgb 11.2 L Hct 31.6 L MCV 80.2 L MCH 28.4 MCHC 35.4 RDW Coeff of Yoly 13.0 Plt Count 112 L Immature Gran % (Auto) 0.2 Neut % (Auto) 41.8 L Lymph % (Auto) 43.5 [place] % (Auto) 14.1 H Eos % (Auto) 0.2 Baso % (Auto) 0.2 Neut # (Auto) 1.9 L Lymph # (Auto) 1.9 [place] # (Auto) 0.6 Eos # (Auto) 0.0 Baso # (Auto) 0.0 Immature Gran # (Auto) 0.0 VBG pH VBG pCO2 VBG pO2 VBG HCO3 VBG O2 Saturation Sodium 138.6 138.7 137.0 Potassium 3.26 L 3.01 L 3.37 L Chloride 113.1 H 114.7 H 115.5 H Carbon Dioxide 26.4 22.9 19.9 L Anion Gap 2.36 4.11 4.97 BUN 3.6 L 6.9 L 9.4 Creatinine 0.31 L 0.29 L 0.37 L Estimated GFR (MDRD) 268.00 289.00 218.00 BUN/Creatinine Ratio 11.61 23.79 25.40 Glucose 70.8 L 74.5 D 172.2 H Hemoglobin A1c Calcium 7.33 L 7.29 L 6.95 L Magnesium Total Bilirubin 0.25 AST 26.4 ALT 16.3 Alkaline Phosphatase 93.8 D Total Protein 4.40 L Albumin 1.99 L Globulin 2.41 Albumin/Globulin Ratio 0.82 Lipase 1422.8 H 02/10/23 02/10/23 02/10/23 11:21 11:18 07:10 WBC RBC Hgb Hct MCV MCH MCHC RDW Coeff of Yoly Plt Count Immature Gran % (Auto) Neut % (Auto) Lymph % (Auto) [place] % (Auto) Eos % (Auto) Baso % (Auto) Neut # (Auto) Lymph # (Auto) [place] # (Auto) Eos # (Auto) Baso # (Auto) Immature Gran # (Auto) VBG pH 7.41 H VBG pCO2 25 L VBG pO2 106 H VBG HCO3 15.8 L VBG O2 Saturation 98.1 H Sodium 136.2 Potassium 3.34 L Chloride 115.9 H Carbon Dioxide 17.9 L Anion Gap 5.74 BUN 12.7 Creatinine 0.40 L Estimated GFR (MDRD) 200.00 BUN/Creatinine Ratio 31.75 Glucose 186.7 H D Hemoglobin A1c 13.60 H D Calcium 7.15 L Magnesium 1.62 Total Bilirubin AST ALT Alkaline Phosphatase Total Protein Albumin Globulin Albumin/Globulin Ratio Lipase Additional Comments Additional Comments: I have independently reviewed and interpreted the labs/EKGs/imaging ordered during this hospital stay. I have reviewed outside records that are available in our EMR that pertain to medical stay including imaging/notes/labs from previous visits. Active Medications Active Medications: Medications Generic Name Dose Route Start Last Admin Trade Name Freq PRN Reason Stop Dose Admin Al Hydroxide/Mg Hydroxide 30 ml 02/10/23 21:16 02/10/23 21:54 Mag Hydrox/Al Hydrox/Simeth 30 Ml Cup PO 30 ml ONCE PRN Administration Abdominal Pain Enoxaparin Sodium 40 mg 02/10/23 09:00 02/11/23 08:58 Enoxaparin Sodium 40 Mg/0.4 Ml Syr SUBCUT 40 mg DAILY MARLY Administration Famotidine 20 mg 02/10/23 21:15 02/10/23 22:29 Famotidine Inj 20 Mg/2 Ml Vial IVP 20 mg ONCE PRN Administration Abdominal Pain INSULIN REGULAR IN 0.9 % NACL 100 unit in 100 mls @ 2 mls/hr 02/09/23 20:00 02/11/23 08:05 Myxredlin 100 Unit/100 Ml Bag IV 4 unit/hr TITRATION MARLY 4 mls/hr Titration Protocol 2 UNIT/HR Potassium Chloride/Dextrose/Sod Cl 1,000 mls @ 250 mls/hr 02/09/23 20:30 02/11/23 08:07 D5%-Ns-Kcl 20 Meq/L Iv [place] IV 250 mls/hr .Q4H MARLY Administration Methimazole 10 mg 02/11/23 09:10 Methimazole 10 Mg Tablet PO DAILY MARLY Metoclopramide HCl 5 mg 02/09/23 21:08 02/10/23 16:19 Metoclopramide Hcl 10 Mg/2 Ml IVP 5 mg Q6HR PRN Administration Nausea / Vomiting Ondansetron HCl 4 mg 02/09/23 12:33 02/10/23 22:29 Ondansetron Hcl/Pf 4 Mg/2 Ml Sdv IVP 4 mg Q6H PRN Administration Nausea / Vomiting Pantoprazole Sodium 40 mg 02/11/23 09:00 02/11/23 09:04 Pantoprazole Sodium 40 Mg Vial IVP 40 mg DAILY MARLY Administration Plan Plan: 1. DKA, severe - resolved, required drip additional 24 hours due to inability to eat, ate breakfast this morning, giving levemir and stopping drip, resume ssi and levemir daily, continue hourly blood sugars 2. High AG metabolic acidosis - resolved 3. JACE, stage I in setting of DKA - resolved, stop fluids 4. Acute Pancreatitis - improving, lipase under 2000, still having burning pain, protonix daily 5. Hypermagnesemia in setting of dka/dehydration - resolved, monitor 6. Hyperthyroidism - TSH chronically low, previously was taking methimazol - restart on 10 mg daily 7. Leukocytosis - resolved, likely reactive due to #1. Pt received vanc and zosyn in ER. CXR & UA negative. 8. Substance abuse - UDS positive for THC. pt denied IV drug use and need for hep/HIV panels, admits to meth use 9. DMT1, uncontrolled - A1c 13. Has poor social support - case management to assist, Consider statin and lázaro-I upon discharge, restart levemir and ssi, 10. Hypotension in setting of dehydration - resolved. 11. Elevated d dimer - Likely inflammatory due to acute illness. Will monitor HR and O2. 12. STI - patient voiced concerns for STI, checking G/C - lab is send out DVT Prophylaxis: Lovenox Patient was unable to tolerate oral intake yesterday due to pancreatitis. Encouraged patient repeatedly throughout the day and exhausted all resources with GI medications. Started on protonix daily. Ate breakfast this am and tolerated well, no vomiting thus far. Patient does not have an established PCP and no active insulin prescription. Unable to have prescriptions filled today due to holiday. Plan to D/C tomorrow after assistance with case management to setup appointment with PCP. Review Statement Review Statement: I have personally discussed and reviewed the patient's visit/currently labs/imaging/decision making with Dr. Willard, my supervising attending. Greater that 50 minutes spent with patient, 50% of the time spent with this p atient was devoted to counseling and coordination of care.
[2023-02-11] MEDS: TAPAZOLE PO SCH (09:28)
[2023-02-11] MEDS: ZOFRAN 4 MG/2 ML IVP PRN (12:10)
[2023-02-11] MEDS: HUMULIN R SUBCUT PRN (21:31)
[2023-02-11] MEDS: MYXREDLIN 100 UNIT/100 ML BAG 100 UNIT/100 ML PLAST..BAG IV SCH (22:35)
[2023-02-12] MEDS: D5%-NS-KCL 20 MEQ/L IV SOL 1,000 ML IV SCH ×2 (03:00→04:46)
[2023-02-12] MEDS: HUMULIN R SUBCUT PRN ×3 (06:33→17:27)
[2023-02-12 08:34] LABS: HEMATOCRIT 35.6 % (37.0-47.0); HEMOGLOBIN 12.2 g/dl (12.0-16.0); MEAN CORPUSCULAR HGB CONC 34.3 (31.8-35.4); MEAN CORPUSCULAR VOLUME 81.7 fl (81.0-99.0); MONOCYTES # (AUTO) 0.4 K/uL (0.4-2.0); MONOCYTES % (AUTO) 12.7 (0-10); NEUTROPHILS # (AUTO) 0.9 K/ul (2.0-6.9); NEUTROPHILS % (AUTO) 27.3 % (42.2-75.2); PLATELET COUNT 113 10^3/uL (140-440); RDW COEFFICIENT OF VARIATION 13.3 % (11.6-14.8); RED BLOOD COUNT 4.36 10^6/ul (4.20-5.40)
[2023-02-12 08:46] LABS: ALANINE AMINOTRANSFERASE 20.8 U/L (0-35); ALBUMIN 2.53 g/dL (3.5-5.0); ALKALINE PHOSPHATASE 121.1 U/L (38-126); ASPARTATE AMINO TRANSFERASE 29.7 U/L (14-36); BILIRUBIN,TOTAL 0.33 mg/dL (0.2-1.3); CALCIUM 8.22 mg/dL (8.4-10.2); CARBON DIOXIDE 32.6 mmol/L (22-30.0); CHLORIDE 100.3 mmol/L (98-107); CREATININE 0.32 mg/dL (0.60-1.30); GLUCOSE 124.8 mg/dL (74-106); POTASSIUM 3.1 mmol/L (3.5-5.1); SODIUM 134.9 mmol/L (134.5-145); TOTAL PROTEIN 5.26 g/dL (6.3-8.2)
[2023-02-12 09:23] LABS: LIPASE 2677.3 U/L (23-300)
[2023-02-12] MEDS: LOVENOX SUBCUT SCH (09:23)
[2023-02-12] MEDS: TAPAZOLE PO SCH (09:26)
[2023-02-12] MEDS: PROTONIX IV IVP SCH (09:27)
[2023-02-12] MEDS ORDERED: K-DUR PO ONE (09:32)
--- NOTE | 2023-02-12 09:37 | DCSUM ---
Admission Date Admission Date: 02/09/23 Discharge Date Discharge Date: 02/12/23 Admission Diagnosis Admission Diagnosis: DKA Discharge Diagnosis Discharge Diagnosis: DKA, Pancreatitis Hospital Provider Hospital Provider[facility], [facility] Summary of History and Physical Summary of History and Physical: Patient is a 22-year-old female with past medical history of DM type I who pre sents with shortness of breath, nausea and vomiting. She was found to be in severe DKA with ph <6.8, bicarb <5, and glucose >500. She was started on fluids, given insulin bolus and started on insulin drip. Required a central line. Her mentation improved after 2 fluid boluses. Still somewhat confused. No active vomiting. She states she's been staying somewhere with air conditioning. She states last insulin use was yesterday. She's unsure of last drug use. She denies hx of dka, however, it is listed in pmhx. About a year ago she was in [place] for glucose >1500 per records. Unreliable historian with this acute condition, pmhx gathered from previous records. Hospital Course Subjective: Over course of stay, patient's DKA resolved with insulin gtt and IV fluids. Electrolytes were replaced. JACE resolved with IV fluids. Patient had complaints of diffuse abdominal pain and elevated lipase. US was completed and showed no acute findings other than gall stones. Patient has been receiving reglan and protonix and lipase has trended down. Patient initially was unable to tolerate PO intake, began to tolerate intake yesterday 02/11 and is feeling much better today. Patient has been noncompliant with all medications over the last 1-2 years and takes her insulin when she has it available. TSH was found to be very low and free T4 high. Has hx of hyperthyroidism in which she has not taken meds for in 2 years. Restarted her on methimazole during stay. Discussed extensively the risks of being noncompliant with her medical conditions and the importance of taking her medications as prescribed and following up with PCP regularly. Appearance: Pleasant, No Apparent Distress and Alert HEENT: MMM and Supple CVS: No Murmur and No Rubs Abdomen: Soft, Non-Tender and No Distention Respiratory: No Dyspnea Extremities: No Edema Vital Signs: Most Recent Vital Signs Temperature 98 F 02/12/23 05:59 Temperature Source Oral 02/12/23 05:59 Temperature Source Infrared 02/09/23 09:44 Pulse Rate 92 02/12/23 08:00 Respiratory Rate 18 02/12/23 08:00 Blood Pressure 119/86 02/12/23 08:00 Blood Pressure Mean 97 02/12/23 08:00 Blood Pressure Left Arm 118/79 02/09/23 15:14 Blood Pressure Location Left Arm 02/12/23 08:00 Blood Pressure Position Supine 02/12/23 08:00 O2 Sat by Pulse Oximetry 97 02/12/23 05:59 Oxygen Delivery Method Room Air 02/12/23 08:00 Height 5 ft 02/09/23 15:14 Weight 99 lb 02/09/23 15:14 Telemetry Type Bedside Monitor 02/12/23 07:00 Telemetry Monitoring Continues 02/12/23 07:00 Irregular Telemetry Rate (Approximate) 140-150 BPM 02/09/23 15:14 Telemetry Heart Rate 101 H 02/12/23 01:00 Telemetry SPO2 96 02/12/23 07:00 EKG MN Interval 0.11 L 02/12/23 07:00 EKG QRS Interval 0.08 02/12/23 07:00 EKG QT Interval 0.28 L 02/11/23 01:00 Telemetry Strip Reading SR with PAC's 02/12/23 07:00 Lab Results Last 24 Hours: 02/12/23 08:29 WBC 3.30 L RBC 4.36 Hgb 12.2 Hct 35.6 L MCV 81.7 MCH 28.0 MCHC 34.3 RDW Coeff of Yoly 13.3 Plt Count 113 L Immature Gran % (Auto) 0.0 Neut % (Auto) 27.3 L Lymph % (Auto) 60.0 H [place] % (Auto) 12.7 H Eos % (Auto) 0.0 Baso % (Auto) 0.0 Neut # (Auto) 0.9 L Lymph # (Auto) 2.0 [place] # (Auto) 0.4 Eos # (Auto) 0.0 Baso # (Auto) 0.0 Immature Gran # (Auto) 0.0 Sodium 134.9 Potassium 3.10 L Chloride 100.3 Carbon Dioxide 32.6 H Anion Gap 5.10 BUN 7.0 Creatinine 0.32 L Estimated GFR (MDRD) 258.00 BUN/Creatinine Ratio 21.87 Glucose 124.8 H Calcium 8.22 L Total Bilirubin 0.33 AST 29.7 ALT 20.8 Alkaline Phosphatase 121.1 D Total Protein 5.26 L Albumin 2.53 L Globulin 2.73 Albumin/Globulin Ratio 0.92 Lipase 2677.3 H Discharge Instructions Discharge Planning: Discharge Planning > 40 minutes Activity as tolerated Diabetic Diet Check glucose with meals and at bedtime. Use sliding scale instructions for insulin dosage with meals. Take Levemir 10 units at bedtime. Do NOT administer insulin without eating. Follow-up with PCP as directed. Augmentin 875 BID x 10 days for pancreatitis Protonix 40 mg daily x 10 days Zofran ODT prn for nausea Discharge Medications: Medications at Discharge (Home Meds & RX) Levemir FlexTouch U100 Insulin 100 unit/mL (3 mL) subcutaneous pen (insulin detemir U-100) 10 unit (0.1 mL) subcut QHS #15 mL 11/05/21 ibuprofen 800 mg tablet 800 mg PO Q8H PRN pain 11/05/21 insulin lispro 100 unit/mL subcutaneous solution (Humalog U-100 Insulin) 1 sliding scale dose subcut USEASDIRECTD #10 mL 11/05/21 insulin syringes (disposable) 1 mL #500 ea 11/05/21 pen needle, diabetic 31 gauge x 3/16" (Advocate Pen Needle) #100 ea 11/05/21 blood sugar diagnostic (OneTouch Ultra Test strips) #100 ea 11/08/21 potassium chloride 20 mEq tablet,extended release 20 meq PO DAILY #20 tabs 01/19/22 ondansetron 4 mg disintegrating tablet 4 mg PO Q8H PRN nausea and vomiting #10 tabs 01/31/22 Discharge Plan Discharge Discharge Orders: Discharge Patient (ONCE); Ordered 02/12/23 Ordered By: ANA ROSA AGUILAR Activity Restrictions/Additional Instructions: YOU HAVE A HOSPITAL FOLLOW UP APPOINTMENT WITH DANIEL EISENBERG AT [facility] ON FridayFebruary AT 1:15PM. THEY WILL DISCUSS ESTABLISHING YOUR PRIMARY CARE PROVIDER AT THIS APPOINTMENT. SHOULD YOU HAVE ANY QUESTIONS OR NEED TO RESCHEDULE YOU CAN CONTACT THEIR OFFICE AT [phone]. Activity as tolerated Diabetic Diet Check glucose with meals and at bedtime. Use sliding scale instructions for insulin dosage with meals. Take Levemir 10 units at bedtime. Do NOT administer insulin without eating. Augmentin 875 BID x 10 days for pancreatitis Protonix 40 mg daily x 10 days Zofran ODT prn for nausea Instructions: Pancreatitis (GEN), Diabetic Ketoacidosis (GEN), Meal Planning with Diabetes Exchanges (GEN) Prescriptions: New methimazole 10 mg Tablet 10 mg PO DAILY Qty: 30 0RF Levemir FlexPen 100 unit/mL (3 mL) insulin pen 10 unit subcut BEDTIME Qty: 15 0RF pantoprazole [Protonix] 40 mg tablet,delayed release (DR/EC) 40 mg PO DAILY Qty: 30 0RF Levemir FlexPen 100 unit/mL (3 mL) insulin pen 10 unit subcut BEDTIME Qty: 15 0RF pantoprazole [Protonix] 40 mg tablet,delayed release (DR/EC) 40 mg PO DAILY Qty: 30 0RF methimazole 10 mg tablet 10 mg PO DAILY Qty: 30 0RF ondansetron 4 mg tablet,disintegrating 4 mg PO Q6H PRN (Reason: nausea and vomiting) Qty: 28 0RF insulin lispro [Humalog U-100 Insulin] 100 unit/mL solution 1 sliding scale dose subcut DIRECTED Qty: 10 0RF amoxicillin-pot clavulanate 875-125 mg tablet 1 tab PO BID Qty: 20 0RF Continued insulin lispro [Humalog U-100 Insulin] 100 unit/mL solution 1 sliding scale dose subcut USEASDIRECTD Qty: 10 0RF Rx Instructions: 3 units, TID with meals, add 1 unit for every 50 over 150 blood sugar ondansetron 4 mg tablet,disintegrating 4 mg PO Q8H PRN (Reason: nausea and vomiting) Qty: 30 0RF (DME) insulin syringes (disposable) 1 mL syringe See Rx Instructions .ROUTE Qty: 100 0RF Rx Instructions: As directed Discontinued potassium chloride 20 mEq tablet extended release 20 meq PO DAILY Qty: 20 0RF ibuprofen 800 mg tablet 800 mg PO Q8H PRN (Reason: pain) Levemir FlexTouch U100 Insulin 100 unit/mL (3 mL) insulin pen 10 unit subcut QHS Qty: 15 0RF No Action (DME) OneTouch Ultra Test Strip See Rx Instructions .ROUTE Qty: 100 0RF Rx Instructions: Use to test blood sugars 3 times daily before meals and as needed (DME) pen needle, diabetic [Advocate Pen Needle] 31 gauge x 3/16" needle See Rx Instructions .ROUTE Qty: 100 0RF Rx Instructions: As directed Did you review [place] PASTE UP ARTIST for ALL controlled substances?: No Discussed opioids are addictive and Narcan is available by prescription or from pharmacy.: No Condition: Fair
[2023-02-12 10:37] VITALS: RESP 16
[2023-02-12] MEDS ORDERED: TYLENOL PO ONE (14:51)
[2023-02-12 16:26] VITALS: BP 114/75; PULSE 96; TEMP 98.2
[2023-02-12] MEDS ORDERED: HUMULIN R SUBCUT ONE (17:21)
[2023-02-12 21:21] LABS: CHLAMYDIA TRACHOMATIS, NAA Negative (Negative); NEISSERIA GONORRHOEAE, NAA Negative (Negative)
== END 2023-02-12 18:05 | disposition home or self-care (01) | DRG 682 ==
LOC: ED 09:39 → SCU 14:02
PROVIDERS: ADMIT Hospitalist; ATTEND Nurse Practitioner Family
DX: F17.210 Nicotine dependence, cigarettes, uncomplicated; E03.9 Hypothyroidism, unspecified; I95.9 Hypotension, unspecified; F15.90 Other stimulant use, unspecified, uncomplicated; R79.1 Abnormal coagulation profile; E86.9 Volume depletion, unspecified; R05.9 Cough, unspecified; F10.90 Alcohol use, unspecified, uncomplicated; N17.9 Acute kidney failure, unspecified; D72.829 Elevated white blood cell count, unspecified; R33.9 Retention of urine, unspecified; E10.10 Type 1 diabetes mellitus with ketoacidosis without coma; K85.90 Acute pancreatitis without necrosis or infection, unspecified; E83.41 Hypermagnesemia; R53.1 Weakness